=== PATIENT | male | born 1990 | race Caucasian/White ===

== ENCOUNTER 2022-09-02 15:57 | Emergency (ER) | payer OTHER, SELFPAY ==
[2022-09-02 16:06] VITALS: BP 131/91; PULSE 90; RESP 18; TEMP 36.8; O2SAT 97; BMI 30.4
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
[2022-09-02] MEDS: ACETAMINOPHEN 500 MG TABLET 1000 MG PO (16:44)
== END 2022-09-02 18:22 | disposition home or self-care (01) ==
PROVIDERS: Emergency Provider Family Medicine
DX: S09.90XA Unspecified injury of head, initial encounter (principal); M62.830 Muscle spasm of back; V43.52XA Car driver injured in collision with other type car in traffic accident, initial encounter
CPT/HCPCS: 70450; 71046; 99283; 99284; A9270

== ENCOUNTER 2024-06-25 10:55 | Emergency (ER) | payer BC, SELFPAY ==
[2024-06-25 11:00] VITALS: BP 118/80; PULSE 117; RESP 18; TEMP 36.8; O2SAT 96; BMI 28.5
--- NOTE | 2024-06-25 11:16 | CRLHL7_ITS ---
For Patients: As a result of the Century Cures Act, medical imaging exams and procedure reports are released immediately into your electronic medical record. You may view this report before your referring provider. If you have questions, please contact your health care provider. INDICATION: Pain swelling TECHNIQUE: A compression venous ultrasound exam was performed of both upper extremities using pina scale imaging, color Doppler and spectral Doppler analysis. FINDINGS: Sonographic imaging of the upper extremities demonstrates normal compressibility and color Doppler venous blood flow within the internal jugular, brachiocephalic subclavian, axillary brachial basilic veins. Thrombus within both cephalic veins extending from proximal upper arm to wrist. Normal blood flow and compressibility in the radial and ulnar veins. IMPRESSION: 1. No upper extremity DVT seen. Superficial thrombus in both cephalic veins from proximal arm to wrist. Results were relayed to the provider by the missile inspector preflight at the time of the evaluation. Dictated by Cathy Cartagena MD @ 06/25/2024 2:21:38 PM (Electronically Signed)
--- NOTE | 2024-06-25 11:22 | ED.GENADULT ---
HPI - General Adult General Chief complaint: Extremity Pain/Injury, Upper Stated complaint: Told to get US on arms Time Seen by Provider: 06/25/24 11:08 History of Present Illness HPI narrative: This 34-year-old male went to urgent care and was told to come here to get ultrasound of his upper extremities. He had IVs in each upper extremity recently when being evaluated for traumatic brain injury. He has now developed redness in his forearms bilaterally with increased warmth and discomfort where the IVs had been in place. There is no pain or swelling in his upper arms bilaterally. He does not report any chest pain or shortness of breath. He arrives here with normal vital signs except for his heart rate is increased at 117 beats per minute. Related Data Home Medications ?Medication ?Instructions ?Recorded ?Confirmed bupropion HCl 09/02/22 divalproex 500 mg tablet,delayed 500 mg PO BID 06/25/24 06/25/24 release escitalopram oxalate 10 mg tablet 10 mg PO DAILY 06/25/24 06/25/24 gabapentin 300 mg capsule 300 mg PO TID 06/25/24 06/25/24 hydroxyzine HCl 25 mg tablet 25 mg PO TID 06/25/24 06/25/24 olanzapine 10 mg tablet 10 mg PO DAILY 06/25/24 06/25/24 oxycodone 5 mg tablet 5 mg PO Q4-6H PRN 06/25/24 06/25/24 quetiapine 50 mg tablet 50 mg PO DAILY 06/25/24 06/25/24 sodium chloride PO DAILY 06/25/24 Previous Rx's ?Medication ?Instructions ?Recorded cyclobenzaprine 10 mg tablet 10 mg PO HS PRN muscle spasm #10 09/02/22 tabs apixaban 5 mg (74 tabs) tablets in See Rx Instructions PO .COMPLEX 06/25/24 a dose pack (Eliquis DVT-PE Treat #74 ea 30D Start) Allergies Allergy/AdvReac Type Severity Reaction Status Date / Time No Known Drug Allergies Allergy Verified 06/25/24 11:02 Review of Systems Status of ROS: Reports: 10 or more systems reviewed and unremarkable except as noted in History and below Narrative: Constitutional: No fevers, no weight gain or loss. Eyes: No discharge. No vision changes. HENT: No congestion, no sore throat, no ear pain. Cardiovascular: No chest pain, no palpitations. Respiratory: No shortness of breath, no wheezes, no cough. Gastrointestinal: No abdominal pain, no vomiting, no diarrhea. Genitourinary: No dysuria, no hematuria. Musculoskeletal: Normal range of motion. Skin: No rashes, no pruritis. Erythema in the proximal forearms bilaterally were IVs had been placed. Neurological: No dizziness, weakness, sensory change, speech change. Endo/Heme/Allergies: No bruising or bleeding. No polydipsia. Pysch: no suicidality, no anxiety, no insomnia. All other systems reviewed and are negative. [facility] Social History Smoking Status: Current every day smoker What tobacco products do you use: cigarettes Smoking packs per day: 0.5 Smoking cigarettes per day: 10.0 Do you use any of these nicotine containing products: None Second hand tobacco smoke exposure: No How often do you have a drink containing alcohol: monthly or less How many standard drinks containing alcohol do you have on a typical day: 1 or 2 How often do you have six or more drinks on one occasion: Never AUDIT-C Alcohol total score: 1 Non-prescribed substance use: denies use Exam Narrative: Exam Narrative: Constitutional: Well-developed, well-nourished, no acute distress. HEENT: Normocephalic, atraumatic. Neck: Normal range of motion. Nontender. Supple. Heart: Intact distal pulses. Tachycardia. Lungs: No chest discomfort. No wheezes, rhonchi, or rales. Abdomen: Nontender. Back: Normal range of motion. Extremities: Normal range of motion. Erythema with increased warmth on the proximal portion of both forearms where IVs had been placed. Skin: Intact. No rash. Warm. No erythema or pallor. Neurologic: No altered sensation. No weakness. Alert and oriented. Psychiatric: No suicidality. No anxiety or depression. No insomnia. Nursing notes and vitals signs are reviewed. Const: Vital Signs, click to edit/add: Vital Signs - 24 hr 06/25/24 11:00 Temperature 98.2 F Pulse Rate [Pulse Oximeter] 117 H Respiratory Rate 18 Blood Pressure [Ri ght Upper Arm] 118/80 Pulse Oximetry 96 Oxygen Delivery Me thod Room Air Course Vital Signs Vital signs: Initial Vital Signs Temperature 98.2 F 06/25/24 11:00 Temperature Source Temporal Artery Scan 06/25/24 11:00 Pulse Rate 117 H 06/25/24 11:00 Respiratory Rate 18 06/25/24 11:00 Blood Pressure 118/80 06/25/24 11:00 Blood Pressure Mean 92 06/25/24 11:00 Blood Pressure Position Sitting 06/25/24 11:00 Pulse Oximetry 96 06/25/24 11:00 Oxygen Delivery Method Room Air 06/25/24 11:00 Vital Signs Temperature 98.2 F 06/25/24 11:00 Pulse Rate 117 H 06/25/24 11:00 Respiratory Rate 18 06/25/24 11:00 Blood Pressure 118/80 06/25/24 11:00 Pulse Oximetry 96 06/25/24 11:00 Oxygen Delivery Method Room Air 06/25/24 11:00 Temperature 98.2 F 06/25/24 11:00 Pulse Rate 117 H 06/25/24 11:00 Respiratory Rate 18 06/25/24 11:00 Blood Pressure 118/80 06/25/24 11:00 Pulse Oximetry 96 06/25/24 11:00 Oxygen Delivery Method Room Air 06/25/24 11:00 Medical Decision Making MDM Narrative Medical decision making narrative: This 34-year-old male had IVs placed in both arms recently and now comes in with pain and swelling with concern about deep venous thromboses. An ultrasound is obtained of both upper extremities and does show evidence of clot in the vasculature. The patient arrives with increased heart rate but while at rest he is in normal range. He does not have any shortness of breath. He did receive an oral tablet of Eliquis 10 mg and a prescription for the Eliquis starter pack. He is a instructed to follow-up with his primary physician for ongoing management or return if worsening. Discharge Plan Discharge Clinical Impression: Deep venous thrombosis of arm Patient Disposition: Home, Self-Care Condition: Unchanged Instructions: Deep Vein Thrombosis (ED), Blood Thinners (ED) Additional Instructions: Take medication as prescribed. Follow up with primary physician for ongoing management. Return if worsening. Prescriptions: New Eliquis DVT-PE Treat 30D Start 5 mg (74 tabs) tablets,dose pack See Rx Instructions PO .COMPLEX Qty: 74 0RF Rx Instructions: orally per package directions No Action bupropion HCl cyclobenzaprine 10 mg tablet 10 mg PO HS PRN (Reason: muscle spasm) Qty: 10 0RF divalproex 500 mg tablet,delayed release (DR/EC) 500 mg PO BID Patient Comments: [NO ORIGINAL SIG] escitalopram oxalate 10 mg tablet 10 mg PO DAILY Patient Comments: TAKE 1/2 TABLET (5MG) BY MOUTH DAILY FOR 14 DAYS, THEN TAKE 1 TABLET (10MG) DAILY.* olanzapine 10 mg tablet 10 mg PO DAILY Patient Comments: [NO ORIGINAL SIG] oxycodone 5 mg tablet 5 mg PO Q4-6H PRN Patient Comments: [NO ORIGINAL SIG] quetiapine 50 mg tablet 50 mg PO DAILY Patient Comments: [NO ORIGINAL SIG] gabapentin 300 mg capsule 300 mg PO TID hydroxyzine HCl 25 mg tablet 25 mg PO TID sodium chloride PO DAILY Follow Up/Referrals: Provider,Not a Local [Staff Physician] - Stand Alone Forms: [employer] Info Instructions
--- OUTSIDE RECORDS SUMMARY | 2024-06-25 11:32 | XMS_ITS | Encounter Summary ---
Author Organization [place] Address [address] [place] [address]. [place] [address] Care Team Providers Care Passport Support Associate Name Role Phone Allan Baker MD Primary Care Provider [phone] Allan Baker MD Unavailable Encounter Details Date Type Department Care Team (Late st Contact Info) Description 04/07/2024 MyC Medical Advice [facility] [id number] [place] [phone] [place] [address] [place] [address] Social History Tobacco Use Types Packs/Day Years Used Date Smoking Tobacco: Every Day Cigarettes 0.5 14.9 Started: 07/31/2009 Smokeless Tobacco: Current Alcohol Use Standard Drinks/Week Comments Yes 0 (1 standard drink = 0.6 oz pur e alcohol) Social Connection and Isolation Panel [NHANES] A nswer Date Recorded In a typical week, how many times do you talk on the phone with family, friends, or neighbors? Once a week 06/23/20 How often do you get togethe r with friends or relatives? Once a week 06/23/2022 How often do you attend chur ch or jehovah's witness services? Never 06/23/2022 Do you belong to any clubs o r organizations such as yazidi groups, unions, fraternal or athletic groups, or school groups? No 06/23/2022 Attends Club or Organization Meetings Not on susan e 06/23/2022 Are you , , di vorced, , never , or living with a partner? Living with partner 06/23/2022 AUDIT-C Answer Date Recorded Q1: How often do you have a drink containing alc ohol? 2-4 times a month 06/23/2022 Q2: How many drinks containi ng alcohol do you have on a typical day when you are drinking? 1 or 2 06/23/2022 Q3: How often do you have si x or more drinks on one occasion? Less than monthly 06/23/2022 Overall Financial Resource Strain (CARDIA) Answe r Date Recorded How hard is it for you to pa y for the very basics like food, housing, medical care, and heating? Somewhat hard 06/23/2022 PHQ-2 Answer Date Recorded PHQ-2 Score 0 08/25/2023 [facility] - Occupational Stress Questionnaire Answer Date Recorded Do you feel stress - tense, restless, nervous, or anxious, or unable to sleep at night because your mind is troubled all the time - these days? To some extent 06/23/2022 Exercise Vital Sign Answer Date Recorde d On average, how many days pe r week do you engage in moderate to strenuous exercise (like a brisk walk)? 4 days 06/23/2022 On average, how many minutes do you engage in exercise at this level? 10 min 06/23/2022 Hunger Vital Sign Answer Date Recorded Within the past 12 months, y ou worried that your food would run out before you got the money to buy more. Sometimes true Within the past 12 months, t he food you bought just didn't last and you didn't have money to get more. Never true 12/2021 PRAPARE - Transportation Answer Date Re corded In the past 12 months, has l ack of transportation kept you from medical appointments or from getting medications? No 12/2021 In the past 12 months, has l ack of transportation kept you from meetings, work, or from getting things needed for daily living? No 06/23/2022 Housing Stability Vital Sign Answer Ladarius e Recorded In the last 12 months, was t here a time when you were not able to pay the mortgage or rent on time? Yes 06/23/2022 In the last 12 months, how many places have you lived? 1 06/23/2022 In the last 12 months, was t here a time when you did not have a steady place to sleep or slept in a chcf (including now)? No 06/23/2022 Adolescent Education Answer Date Record ed Getting School Help Needed Not on file 08/14 Interpersonal Safety Answer Date Record ed Do you feel physically and e motionally safe where you currently live? Yes 08/11/2023 Within the past 12 months, h ave you been hit, slapped, kicked or otherwise physically hurt by someone? No 08/11/2023 Within the past 12 months, h ave you been humiliated or emotionally abused in other ways by your partner or ex-partner? No 08/11/2023 Sex and Gender Information Value Date Recorded Sex Assigned at Male 06/04/2022 12:49 AM CDT Gender Identity Male 06/04/2022 12:49 AM CDT Sexual Orientation Straight 06/04/2022 12 :49 AM CDT documented as of this encounter Miscellaneous Notes * Telephone Encounter - Allan Baker MD - 04/08/2024 9:06 AM CDT Visit to discuss ZG documented in this encounter Plan of Treatment Not on file documented as of this encounter Visit Diagnoses Not on filedocumented in this encounter Additional Health Concerns Assessment Noted Time PHQ-9 Depression Total Score: 4 08/25/20 9:40 AM CDT documented as of this encounter Care Teams Passport Support Associate Relationship Specialty [place] [address] [facility] [place] [address] PCP - General Family Medicine 06/23/22 [place] [address] [place] [address] Assigned PCP 06/03/22 documented as of this encounter
--- OUTSIDE RECORDS SUMMARY | 2024-06-25 11:32 | XMS_ITS | Referral Summary ---
Author Organization [place] Address [address] [place] [address] Care Team Providers Care Order Takers Supervisor Name Role Phone Allan Baker MD Primary Care Provider [phone] Allan Baker MD Unavailable Encounters Date Type Department Care Team Description 06/05/2024 MyC Medical Advice [address] [phone] Allan Baker MD MyChart Communication 05/29/2024 Travel 05/29/2024 1:00 PM CDT Office Visit [address] [phone] Allan Baker MD Annual physical exam (Primary Dx); Moderate recurrent major depression (H) 04/07/2024 MyC Medical Advice [facility] [id number] [place] [phone] Allan Baker MD from Last 3 Months Allergies No known active allergies Medications Medication Sig Dispensed Refills Start Date End Date Status fluticasone (FLONASE) 50 MCG/ACT nasal sprayIndications :Seasonal allergic rhinitis due to pollen [place] 1-2 sprays into both nostrils daily 16 g 04/03/2021 Active propranolol (INDERAL) 10 MG tablet Take 1 tablet by mouth 3 times daily 02/24/2023 Active BANOPHEN 25 MG capsule Take by mouth nightly as needed 02/24/2023 Active escitalopram (LEXAPRO) 10 MG tabletIndication s:Moderate recurrent major depression (H) Take 1 tablet (10 mg) by mouth daily 90 tablet 3 05/29/2024 Active hydrOXYzine HCl (ATARAX) 25 MG tabletIndication s:Anxiety Take 1 tablet (25 mg) by mouth 3 times daily as needed for anxiety 30 tablet 06/05/2024 Active buPROPion (WELLBUTRIN XL) 300 MG 24 hr tabletIndication s:Depression, unspecified depression type Take 1 tablet (300 mg) by mouth every morning 90 tablet 08/12/2022 4 Discontinued escitalopram (LEXAPRO) 10 MG tabletIndication s:Moderate recurrent major depression (H) Take 0.5 tablets (5 mg) by mouth daily for 14 days, THEN 1 tablet (10 mg) daily for 90 days. 90 tablet 1 08/11/2023 4 Discontinued(Reor raymundo (No AVS)) methocarbamol (ROBAXIN) 500 MG tabletIndication s:Back muscle spasm Take 1 tablet (500 mg) by mouth 4 times daily as needed for muscle spasms 30 tablet 09/09/2023 4 Discontinued Active Problems Problem Noted Date Diagnosed Date Contact dermatitis 01/26/2022 Overview: Created by Conversion Lower back pain 01/26/2022 Overview: Created by Conversion Pain in joint involving ankle and foot 2 Regular astigmatism 01/26/2022 Current moderate episode of major depressive disorder without prior episode 12/26/2020 Overview: Last Assessment & Plan: Improvement in mood, irritability (although this is persistent) with initiation of Wellbutrin. Irritability continues to be primary concern with associated anger. Adherent to Wellbutrin although taking a few evening doses due to forgetting prior to work. Denies associated insomnia Wellbutrin XL 150 mg qAM Encouraged continued engagement with psychotherapy Insomnia due to other mental disorder 09/18/2020 Overview: Last Assessment & Plan: Sleeping well with use of PRN Hydroxyzine FELICIA (generalized anxiety disorder) 09/10/2020 Overview: Last Assessment & Plan: Wellbutrin XL 150 mg daily was started by PCP, quite successful. Will increase next appointment after work schedule normalizes Hydroxyzine PRN for acute anxiety and agitation Continue S1 therapy Regular astigmatism of both eyes 08/27/2017 Sprain of medial collateral ligament of knee Resolved Problems Problem Noted Date Diagnosed Date Resolved Date Mild traumatic brain injury 09/04/2021 05/29/2024 Sprain of acromioclavicular ligament 08/03/2008 04/10/2019 Overview: Problem list name updated by automated process. Provider to review Immunizations Name Administration Dates Next Due Adenovirus, Type 4 and Type 7, Live, Oral 11/30/2013 COVID-19 Monovalent 18+ (Moderna) 08/19/2021, Flu, Unspecified 10/11/2016,08/22/2014 Hepatitis A (ADULT 19+) 11/30/2013 Hepatitis B, Peds 12/11/2002,06/05/2002,03/03/20 02 Influenza (IIV3) PF 08/31/2008 Influenza Vaccine >6 months,quad, PF 11/06/2022 Influenza, seasonal, injectable, PF 11/25/2013 MMR 07/13/2019,07/16/2003 Meningococcal (Menomune??) 06/16/2006 Meningococcal ACWY (Menactra??) 11/30/2013,06/16 Nasal Influenza Vaccine 2-49 (FluMist) 0 Poliovirus, inactivated (IPV) 11/30/2013 TDAP (Adacel,Boostrix) 01/03/2021,2013,11/22/2012,08/31 TDAP Vaccine (Adacel) 07/27/2013 Td (Adult), Adsorbed 11/08/1999 Tdap (Adult) Unspecified Formulation 11/08/1999 Varicella 08/31/2008,06/02/2005 Social History Tobacco Use Types Packs/Day Years Used Date Smoking Tobacco: Every Day Cigarettes 0.5 14.9 Started: 07/31/2009 Passive Smoke Exposure: Current Smokeless Tobacco: Current Tobacco Cessation:Ready to Q uit: Not Asked; Counseling Given: Not Answered Alcohol Use Standard Drinks/Week Comments Yes 0 [...] 06/23/2022 How often do you attend chur or spiritism services? Never 06/23/2022 Do you belong to any clubs o r organizations such as confucianist groups, unions, fraternal or athletic groups, or [...] on one occasion? Less than monthly 06/23/2022 PHQ-2 Answer Date Recorded PHQ-2 Score 2 05/29/2024 [facility] - Occupational Stress [...] exercise at this level? 10 min 06/23/2022 Adolescent Education Answer Date Record ed Getting School Help Needed Not on file 08/14 Food Insecurity Answer Date Recorded Within the past 12 months, d id you worry that your food would run out before you got money to buy more? No 05/29/2024 Within the past 12 months, d id the food you bought just not last and you didn? t have money to get more? No 05/29/2024 Housing Stability Answer Date Recorded Do you have housing? (Rodolfo lopez is defined as stable permanent housing and does not include staying ouside in a car, in a tent, in an abandoned building, in an overnight usp, or couch-surfing.) Yes 05/29/2024 Are you worried about losing your housing? No 05/29/2024 Financial Resource Strain Answer Date R ecorded Within the past 12 months, h ave you or your family members you live with been unable to get utilities (heat, electricity) when it was really needed? No 05/29/2024 Transportation Needs Answer Date Record ed Within the past 12 months, h as lack of transportation kept you from medical appointments, getting your medicines, non-medical meetings or appointments, work, or from getting things that you need? No 05/29/2024 Interpersonal Safety Answer Date Record ed Do [...] Orientation Straight 06/04/2022 12 :49 AM CDT Last Filed Vital Signs Vital Sign Reading Time Taken Comments Blood Pressure 115/77 05/29/2024 12:57 PM CDT Pulse 86 05/29/2024 12:57 PM CDT Temperature 37.1 ??C (98.7 ??F) 05/29/2024 12:57 PM C DT Respiratory Rate 16 05/29/2024 12:57 PM CDT Oxygen Saturation 97% 05/29/2024 12:57 PM CDT Inhaled Oxygen Concentration - - Weight 95.3 kg (210 lb) 05/29/2024 12:57 PM CDT Height 182.9 cm (6') 05/29/2024 12:57 PM CDT Body Mass Index 28.48 05/29/2024 12:57 PM CDT Plan of Treatment Not on file Procedures Procedure Name Priority Date/Time Associated Diagnosis Comments COMPREHENSIVE METABOLIC PANEL Routine 05/29/2024 1:38 PM CDT Annual physical exam LIPID REFLEX TO DIRECT LDL PANEL Routine 05/29/2024 1:38 PM CDT Annual physical exam CBC WITH PLATELETS Routine 05/29/2024 1: 38 PM CDT Annual physical exam HIV ANTIGEN ANTIBODY COMBO Routine 08/11/2023 9:24 AM CDT Screening examination for sexually transmitted disease from Last 3 Months or Most Recently Relevant to Health Maintenance Results * (ABNORMAL) Lipid panel reflex to direct LDL Fasting (05/29/2024 1:38 PM CDT) Cholesterol 95 <200 mg/dL 05/29/2024 6:35 PM CDT [facility] Triglycerides 37 <150 mg/dL 05/29/2024 6:35 PM CDT [facility] Direct Measure HDL 35(L) >=40 mg/dL 05/29/2024 6:35 PM CDT [facility] LDL Cholesterol Calculated 53 <=100 mg/dL 05/29/2024 6:35 PM CDT [facility] Non HDL Cholesterol 60 <130 mg/dL 05/29/2024 6:35 PM CDT [facility] Patient Fasting > 8hrs? Unknown 05/29/2024 6:35 PM CDT [facility] Blood BLOOD SPECIMEN / Unknown Venipuncture / Unknown 05/29/2024 1:38 PM CDT 05/29/2024 1:38 PM CDT Narrative [facility] - 05/29/2024 6:35 PM CDT Cholesterol Desirable: ??<200 mg/dL Triglycerides Normal: ??Less than 150 mg/dL Borderline High: ??150-199 mg/dL High: ??200-499 mg/dL Very High: ??Greater than or equal to 500 mg/dL Direct Measure HDL Female: ??Greater than or equal to 50 mg/dL Male: ??Greater than or equal to 40 mg/dL LDL Cholesterol Desirable: ??<100mg/dL Above Desirable: ??100-129 mg/dL Borderline High: ??130-159 mg/dL High: ??160-189 mg/dL Very High: ??>= 190 mg/dL Non HDL Cholesterol Desirable: ??130 mg/dL Above Desirable: ??130-159 mg/dL Borderline High: ??160-189 mg/dL High: ??190-219 mg/dL Very High: ??Greater than or equal to 220 mg/dL Allan Baker MD LAB - BLOOD ORDERABL ES [facility] Core Lab [address] [facility], [address] [id number] * Comprehensive metabolic panel (BMP + Alb, Alk Phos, ALT, AST, Total. Bili, TP) (05/29/2024 1:38 PM CDT) Sodium 141 135 - 145 mmol/L 05/29/2024 6:35 PM CDT [facility] Potassium 4.4 3.4 - 5.3 mmol/L 05/29/2024 6:35 PM CDT [facility] Carbon Dioxide (CO2) 27 22 - 29 mmol/L 05/29/2024 6:35 PM CDT [facility] Anion Gap 7 7 - 15 mmol/L 05/29/2024 6:35 PM CDT [facility] Urea Nitrogen 10.8 6.0 - 20.0 mg/dL 05/29/2024 6:35 PM CDT [facility] Creatinine 0.88 0.67 - 1.17 mg/dL 05/29/2024 6:35 PM CDT [facility] GFR Estimate >90 >60 mL/min/1. 73m2 05/29/2024 6:35 PM CDT [facility] Comment:eGFR calculated us2020 CKD-EPI equation. Calcium 8.6 8.6 - 10.0 mg/dL 05/29/2024 6:35 PM CDT [facility] Chloride 107 98 - 107 mmol/L 05/29/2024 6:35 PM CDT [facility] Glucose 90 70 - 99 mg/dL 05/29/2024 6:35 PM CDT [facility] Alkaline Phosphatase 50 40 - 150 U/L 05/29/2024 6:35 PM CDT [facility] AST 21 0 - 45 U/L 05/29/2024 6:35 PM CDT [facility] Comment:Reference intervals for this test were updated on 05/03/2023 to more accurately reflect our healthy population. There may be differences in the flagging of prior results with similar values performed with this method. Interpretation of those prior results can be made in the context of the updated reference intervals. ALT 18 0 - 70 U/L 05/29/2024 6:35 PM CDT [facility] Comment:Reference intervals for this test were updated on 05/03/2023 to more accurately reflect our healthy population. There may be differences in the flagging of prior results with similar values performed with this method. Interpretation of those prior results can be made in the context of the updated reference intervals. Protein Total 6.8 6.4 - 8.3 g/dL 05/29/2024 6:35 PM CDT [facility] Albumin 4.1 3.5 - 5.2 g/dL 05/29/2024 6:35 PM CDT [facility] Bilirubin Total 0.4 <=1.2 mg/dL 05/29/2024 6:35 PM CDT [facility] Patient Fasting > 8hrs? Unknown 05/29/2024 6:35 PM CDT [facility] Blood BLOOD SPECIMEN / Unknown Venipuncture / Unknown 05/29/2024 1:38 PM CDT 05/29/2024 1:38 PM CDT Allan Baker MD LAB - BLOOD ORDERABL ES [facility] [place] [facility] [address] [facility] [address] [facility], [address] [place] [address], [facility] * CBC with platelets (05/29/2024 1:38 PM CDT) WBC Count 9.7 4.0 - 11.0 10e3/uL 05/29/2024 1:40 PM CDT [facility] RBC Count 4.48 4.40 - 5.90 10e6/uL 05/29/2024 1:40 PM CDT [facility] Hemoglobin 14.2 13.3 - 17.7 g/dL 05/29/2024 1:40 PM CDT [facility] Hematocrit 43.2 40.0 - 53.0 % 05/29/2024 1:40 PM CDT [facility] MCV 96 78 - 100 fL 05/29/2024 1:40 PM CDT [facility] MCH 31.7 26.5 - 33.0 pg 05/29/2024 1:40 PM CDT [facility] MCHC 32.9 31.5 - 36.5 g/dL 05/29/2024 1:40 PM CDT [facility] RDW 11.7 10.0 - 15.0 % 05/29/2024 1:40 PM CDT [facility] Platelet Count 204 150 - 450 10e3/uL 05/29/2024 1:40 PM CDT [facility] Blood BLOOD SPECIMEN / Unknown Venipuncture / Unknown 05/29/2024 1:38 PM CDT 05/29/2024 1:38 PM CDT Allan Baker MD LAB - BLOOD ORDERABL ES [facility] [address] [facility] (no room number, 1st floor of [facility]) [place] [address] [phone] * HIV Antigen Antibody Combo (08/11/2023 9:24 AM CDT) [facility] HIV Antigen Antibody Combo Nonreactive Nonreactive 08/12/2023 3:43 PM CDT SPECIALTY CORE/PROT/EN DO Comment:HIV-1 p24 Ag & HIV-1 /HIV-2 Ab Not Detected Blood BLOOD SPECIMEN / Unknown Venipuncture / Unknown 08/11/2023 9:24 AM CDT 08/11/2023 9:27 AM CDT Allan Baker MD LAB - BLOOD ORDERABL ES [facility]/PROT/ENDO [facility] Core/Prot/Endo [address] [facility] [address], [address] [place] [address], [facility] [phone] from Last 3 Months or Most Recently Relevant to Health Maintenance Care Teams Order Takers Supervisor Relationship Specialty [place] [address] [place] [address] PCP - General Family Medicine 06/23/22 [place] [address] [place] [address] Assigned PCP 06/03/22
--- OUTSIDE RECORDS SUMMARY | 2024-06-25 11:32 | XMS_ITS | Clinical Summary ---
Author Organization [employer] [facility] Address [place], [place] [address] Care Team Providers Care Passenger Vessel Chef Name Role Phone [facility] Primary Care Provider Unavailabl e Allergies No known active allergies Medications Medication Sig Dispensed Refills Start Date End Date Status cyclobenzaprine (FLEXERIL) 10 mg tabletIndications :Acute bilateral low back pain without sciatica Take 0.5-1 tablets by mouth 3 times daily. 30 tablet 03/14/2019 Active naproxen (NAPROSYN) 500 mg tabletIndications :Acute bilateral low back pain without sciatica Take 1 tablet by mouth 2 times daily with meals. 14 tablet 03/14/2019 Active Additional Information Patient not taking.Reported on 06/25/2024 HYDROcodone-aceta minophen, 5-325 mg, (NORCO) per tabletIndications :Acute bilateral low back pain without sciatica Take 1 tablets up to twice daily as needed for pain. Max acetaminophen dose: 4000 mg in 24 hrs. 10 tablet 03/14/2019 Active QUEtiapine (SEROQUEL) 50 mg tablet Take by mouth. 06/23/2024 Active oxyCODONE (ROXICODONE) 5 mg immediate release tablet Take 5-10 mg by mouth. 06/23/2024 06/28/2024 Active OLANzapine (ZYPREXA, FILM COATED TABLET,) 10 mg tablet Take 10 mg by mouth. 06/23/2024 Ac tive nicotine (NICORETTE) 2 mg gum 2 mg by Intra-Detrusor route. 06/23/2024 Active hydrOXYzine HCL (ATARAX) 25 mg tablet Take 25 mg by mouth. 06/05/2024 Acti ve gabapentin (NEURONTIN) 300 mg capsule Take 300 mg by mouth. 06/23/2024 Active escitalopram oxalate (LEXAPRO) 10 mg tablet Take 10 mg by mouth. 05/29/2024 Ac tive divalproex (DEPAKOTE) 500 mg Delayed-Release tablet Take 500 mg by mouth. 06/23/2024 Active Active Problems Problem Noted Date Diagnosed Date Regular astigmatism of both eyes 08/27/2017 Encounters Date Type Department Care Team Description 06/25/2024 9:30 AM CDT Office Visit [facility] [place] [address] [place] [address] Leslye Tripathi, FAN Dizzy; Arm Pain/problem 06/25/2024 Travel from Last 3 Months Immunizations Name Administration Dates Next Due Hepatitis B (Peds) 12/11/2002,06/05/2002, 002 Influenza Virus, Unspecified 10/11/2016,08/22/20 14 Influenza, IIV3 (Age >=3 years) 08/31/2008 MMR 07/16/2003 Meningococcal Vaccine (Menactra) 06/16/2006 Td (Age >=7 Years) 11/08/1999 Tdap 07/27/2013,11/22/2012,08/31/2008 Varicella Vaccine 08/31/2008,06/02/2005 Family History Medical History Relation Name Comments Congenital heart disease Brother 1 Congenital heart disease Brother 2 No Known Problems Father Diabetes Maternal Grandfather Diabetes Maternal Grandmother Congenital heart disease Mother Thyroid Disease Mother Diabetes Paternal Grandmother Relation Name Status Comments Brother 1 Brother 2 Father Maternal Grandfather Maternal Grandmother Mother Paternal Grandmother Social History Tobacco Use Types Packs/Day Years Used Date Smoking Tobacco: Every Day Cigarettes 0.3 5 Started: 11/22/2008; Last attempted to quit: 11/22/2013 Smokeless Tobacco: Never Tobacco Cessation:Ready to Q uit: Not Asked; Counseling Given: Not Answered Comments:03/14/19 - started back up again Alcohol Use Standard Drinks/Week Comments Yes 0 (1 standard drink = 0.6 oz pur e alcohol) PHQ-2 Answer Date Recorded PHQ-2 Score 6 01/24/2019 Sex and Gender Information Value Date Recorded Sex Assigned at Not on file Gender Identity Not on file Sexual Orientation Not on file Obstetrics History Last Filed Vital Signs Vital Sign Reading Time Taken Comments Blood Pressure 112/65 06/25/2024 9:32 AM CDT Pulse 85 06/25/2024 9:32 AM CDT Temperature 37 ??C (98.6 ??F) 06/25/2024 9:32 AM CDT Respiratory Rate 16 06/25/2024 9:32 AM CDT Oxygen Saturation 94% 06/25/2024 9:32 AM CDT Inhaled Oxygen Concentration - - Weight 95.3 kg (210 lb) 06/25/2024 9:32 AM CDT Height 182.9 cm (6') 06/25/2024 9:32 AM CDT Body Mass Index 28.48 06/25/2024 9:32 AM CDT Plan of Treatment Health Maintenance Due Date Last Done Comments Depression screening for age 12+ 07/27/2019 07/27/2018, 07/18/2018, 06/14/2018 COVID-19 vaccine series (2022- season) 2023 Tetanus booster 07/27/2023 07/27/2013, 11/2012, 08/31/2008, Additional history exists Influenza for age 9-49 07/23/2024 6, 08/22/2014, 08/31/2008 BMI (ht and wt on same day) for age 18+ 06/25/2025 06/25/2024, 03/14/2019, 07/27/2018, Additional history exists Tdap Completed 07/27/2013, 11/2012, 08/31/2008 HIV for age 15-65 Completed 06/14/2018 Hepatitis C screening for age 18-79 Completed 06/14/2018 Pneumococcal series for age 6-64 Aged Out No longer eligible based on patient's age to complete this topic Procedures Procedure Name Priority Date/Time Associated Diagnosis Comments ANTI HIV 1/2 Routine 06/14/2018 4:49 PM CDT Screen for STD (sexually transmitted disease) ANTI HCV Routine 06/14/2018 4:49 PM CDT Screen for STD (sexually transmitted disease) from Last 3 Months or Most Recently Relevant to Health Maintenance Results * ANTI HCV (06/14/2018 4:49 PM CDT) HEPATITIS C ANTIBODY Non-React derian Non-React derian 06/15/2018 4:29 PM CDT [facility] [employer] Comment:Antibodies to HCV no t detected; does not exclude the possibility of exposure to HCV. Blood BLOOD SPECIMEN / Unknown Butterfly / Unknown 06/14/2018 4:49 PM CDT 06/14/2018 4:49 PM CDT Mireya Odom MD SEND OUTS [facility] [employer] [address] [place] [address], [place] * ANTI HIV 1/2 (06/14/2018 4:49 PM CDT) HIV-1/HIV-2 ANTIBODY Non-Reacti ve Non-Reacti ve 06/15/2018 4:27 PM CDT [facility] Comment:HIV-1 p24 and HIV-1/ HIV-2 Ab not detected. Blood BLOOD SPECIMEN / Unknown Butterfly / Unknown 06/14/2018 4:49 PM CDT 06/14/2018 4:50 PM CDT Mireya Odom MD SEND OUTS [facility] [address] [place] [address], from Last 3 Months or Most Recently Relevant to Health Maintenance Care Teams Passenger Vessel Chef Relationship Specialty Start Date End Date [facility] [place] - General 06/09/18
--- OUTSIDE RECORDS SUMMARY | 2024-06-25 11:32 | XMS_ITS | Encounter Summary ---
Author Organization [place] Address [address] [place] [address]. [place] [address] Care Team Providers Care Machine Lacer Name Role Phone Allan Baker MD Primary Care Provider [phone] Allan Baker MD Unavailable Encounter Details Date Type Department Care Team (Latest Contact Info) Description 05/29/2024 Travel Social History Tobacco Use Types Packs/Day Years Used Date Smoking Tobacco: Every Day Cigarettes 0.5 14.9 Started: 07/31/2009 Passive Smoke Exposure: Current Smokeless Tobacco: Current Alcohol Use Standard Drinks/Week [...] How often do you attend chur or bahai services? Never 06/23/2022 Do you belong to any clubs o r organizations such as jewish groups, unions, fraternal or athletic groups, or [...] Answer Date Recorded PHQ-2 Score 2 05/29/2024 [facility] - Occupational Stress Questionnaire Answer Date Recorded [...] in an abandoned building, in an overnight jail, or couch-surfing.) Yes 05/29/2024 Are you worried [...] AM CDT documented as of this encounter Plan of Treatment Not on file documented as of this encounter Visit Diagnoses Not on filedocumented in this encounter Additional Health Concerns Assessment Noted Time PHQ-9 Depression Total Score: 11 024 12:50 PM CDT documented as of this encounter Care Teams Machine Lacer Relationship Specialty [place] [address] [place] [address] PCP - General Family Medicine 06/23/22 [place] [address] [place] [address] Assigned PCP 06/03/22 documented as of this encounter
--- OUTSIDE RECORDS SUMMARY | 2024-06-25 11:32 | XMS_ITS | Encounter Summary ---
Author Organization [place] Address [address] [place] [address]. [place] [address] Care Team Providers Care Concrete Finishing Machine Operator Name Role Phone Allan Baker MD Primary Care Provider [phone] Allan Baker MD Unavailable Kasandra Resendez PA-C Unavailable Reason for Visit * Reason Onset Date Comments Referral 06/23/2022 Encounter Details Date Type Department Care Team (Late st Contact Info) Description 06/23/2022 MyC Medical Advice [facility] [id number] [place] [phone] [place] [id number] [place] [address] Referral Social History Tobacco Use Types Packs/Day Years [...] week 06/23/2022 How often do you attend [facility] or anglican services? Never 06/23/2022 Do you belong to any clubs o r organizations such as gnosticist groups, unions, fraternal or athletic groups, or [...] PHQ-2 Answer Date Recorded PHQ-2 Score 2 06/23/2022 [facility] - Occupational [...] place to sleep or slept in a prison (including now)? No 06/23/2022 Sex and Gender Information Value Date Recorded Sex Assigned at Male 06/04/2022 12:49 AM CDT Gender Identity Male 06/04/2022 12:49 AM CDT Sexual Orientation Straight 06/04/2022 12 :49 AM CDT COVID-19 Exposure Response Date Recorded In the last 10 days, have yo u been in contact with someone who was confirmed or suspected to have Coronavirus/COVID-19? No / Unsure 06/23/2022 9:44 AM CDT documented as of this encounter Miscellaneous Notes * Telephone Encounter - David Horn RN - 06/23/2022 12:54 PM CDT Huddled with provider in clinic, provider oklized sleep study, RN attempted to order with VO but order already pended by provider. David Corley RN documented in this encounter Plan of Treatment Not on file documented as of this encounter Visit Diagnoses Diagnosis Loud snoring- Primary documented in this encounter Additional Health Concerns Infection Onset Date Last Indicated Resolved Time Influenza 02/27/2023 02/27/2023 03/06/2023 11:3 9 PM CDT Rule Out COVID-19 02/27/2023 02/27/2023 03/02/2023 11:21 AM CDT Assessment Noted Time PHQ-9 Depression Total Score: 12 022 10:01 AM CDT documented as of this encounter Care Teams Concrete Finishing Machine Operator Relationship Specialty [place] [address] [place] [address] PCP - General Family Medicine 06/23/22 [place] [address] [place] [address] Assigned PCP 06/03/22 Kasandra Resendez PA-C [address] [place] [address] Assigned Neuroscience Provider 03/06/23 12/15/23 documented as of this encounter
--- OUTSIDE RECORDS SUMMARY | 2024-06-25 11:32 | XMS_ITS | Encounter Summary ---
Author Organization [place] Address [address] [place] [address]. [place] [address] Care Team Providers Care Growth Hacker Name Role Phone Allan Baker MD Primary Care Provider [phone] Allan Baker MD Unavailable Kasandra Resendez PA-C Unavailable [phone] Encounter Details Date Type Department Care Team (Late st Contact Info) Description 06/24/2022 MyC Medical Advice [place] Centralized Scheduling [facility] [place] [address] Nya Willis Social History Tobacco Use Types Packs/Day Years [...] often do you attend chur ch or orthodox services? Never 06/23/2022 Do you belong to any clubs o r organizations such as latter day groups, unions, fraternal or athletic groups, or [...] Answer Date Recorded PHQ-2 Score 2 06/23/2022 [facility] - Occupational [...] place to sleep or slept in a long term (including now)? No 06/23/2022 Sex and Gender [...] filedocumented in this encounter Additional Health Concerns Infection Onset Date Last Indicated Resolved Time Influenza 02/27/2023 02/27/2023 03/06/2023 11:3 9 PM CDT Rule Out COVID-19 02/27/2023 02/27/2023 03/02/2023 11:21 AM CDT Assessment Noted Time PHQ-9 Depression Total Score: 12 022 10:01 AM CDT documented as of this encounter Care Teams Growth Hacker Relationship Specialty [place] [address] [place] [address] PCP - General Family Medicine 06/23/22 [place] [address] [place] [address] Assigned PCP 06/03/22 Kasandra Resendez PA-C [address] [place] [address] Assigned Neuroscience Provider 03/06/23 12/15/23 documented as of this encounter
--- OUTSIDE RECORDS SUMMARY | 2024-06-25 11:32 | XMS_ITS | Encounter Summary ---
Author Organization [place] Address [address] [place] [address] Care Team Providers Care Life Science Taxonomist Name Role Phone Allan Baker MD Primary Care Provider [phone] Allan Baker MD Unavailable Kasandra Resendez PA-C Unavailable [phone] Encounter Details Date Type Department Care Team (Late st Contact Info) Description 08/31/2022 MyC Medical Advice [address] [phone] Vane Montejo CMA Social History Tobacco Use Types Packs/Day Years [...] often do you attend chur ch or congregational services? Never 06/23/2022 Do you belong to [...] Answer Date Recorded PHQ-2 Score 2 06/23/2022 [facility] - Occupational [...] place to sleep or slept in a halfway (including now)? No 06/23/2022 Sex and Gender [...] documented as of this encounter Care Teams Life Science Taxonomist Relationship Specialty [place] [address] [place] [address] PCP - General Family Medicine 06/23/22 [place] [address] [place] [address] Assigned PCP 06/03/22 Kasandra Resendez PA-C [address] [place] [address] Assigned Neuroscience Provider 03/06/23 12/15/23 documented as of this encounter
--- OUTSIDE RECORDS SUMMARY | 2024-06-25 11:32 | XMS_ITS | Encounter Summary ---
Author Organization [place] Address [address] [place] [address] Care Team Providers Care Cash Posting Representative Name Role Phone Allan Baker MD Primary Care Provider [phone] Allan Baker MD Unavailable Kasandra Resendez PA-C Unavailable [phone] Encounter Details Date Type Department Care Team (Late st Contact Info) Description 08/12/2022 MyC Medical Advice [address] [phone] Vanessa Mehta RN Social History Tobacco Use Types Packs/Day Years [...] often do you attend chur ch or catholic services? Never 06/23/2022 Do you belong to any clubs o r organizations such as anglican groups, unions, fraternal or athletic groups, or [...] Answer Date Recorded PHQ-2 Score 2 06/23/2022 [facility] - Occupational [...] place to sleep or slept in a assisted (including now)? No 06/23/2022 Sex and Gender [...] documented as of this encounter Care Teams Cash Posting Representative Relationship Specialty [place] [address] [place] [address] PCP - General Family Medicine 06/23/22 [place] [address] [place] [address] Assigned PCP 06/03/22 Kasandra Resendez PA-C [address] [place] [address] Assigned Neuroscience Provider 03/06/23 12/15/23 documented as of this encounter
--- OUTSIDE RECORDS SUMMARY | 2024-06-25 11:32 | XMS_ITS | Encounter Summary ---
Author Organization [place] Address [address] [place] [address]. [place] [address] Care Team Providers Care It Application Support Analyst Name Role Phone Allan Baker MD Primary Care Provider [phone] Allan Baker MD Unavailable Reason for Referral * Mental Health Outpatient (Priority: 1-2 Weeks) - Pending Review Specialty Diagnoses / Procedures Referred By Radha mancuso Referred To Contact Behavioral Health Diagnoses Moderate recurrent major depression (H) [place] [address] [place] [address] Referral ID Status Reason Start Date Expiration Date V isits Requested Visits Authorized [id number] Pending Review 05/29/2024 05/29/2025 1 1 Question Answer Services: Psychological Testing Reason for Referral - REVIEW REFERENCE LINK BELOW: Psychological Testing My clinical question is: trauma/stress disorder, irritability/anger, history of alcohol dependence, was previously seen at [facility] Scheduling Instructions: [employer] will call you to coordinate your care as prescribed by your provider. If you don't hear from a payroll representative within 2 business days, please call . Only select yes if the patient has already been scheduled and requires a referral for insurance. If yes is selected, the referral will NOT route to scheduling for outreach. No Comments Please be aware that coverage of these services is subject to the terms and limitations of your health insurance plan. Call member services at your health plan with any benefit or coverage questions. [employer] will call you to coordinate your care as prescribed by your provider. If you don't hear from a payroll representative within 2 business days, please call . Reason for Visit * Reason Comments Physical PE Mental Health Problem Follow-up mental h ealth Encounter Details Date Type Department Care Team (Late st Contact Info) Description 05/29/2024 1:00 PM CDT Office Visit [facility] [id number] [place] [phone] [place] [address] [place] [address] Annual physical exam (Primary Dx); Moderate recurrent major depression (H) Social History Tobacco Use Types Packs/Day Years [...] How often do you attend chur or alevism services? Never 06/23/2022 Do you belong to any clubs o r organizations such as evangelical groups, unions, fraternal or athletic groups, or [...] Answer Date Recorded PHQ-2 Score 2 05/29/2024 [facility] Occupat ional Health - Occupational Stress [...] Answer Date Recorded Do you have housing? (Housin g is defined as stable permanent housing and does not include staying ouside in a car, in a tent, in an abandoned building, in an overnight half-way, or couch-surfing.) Yes 05/29/2024 Are you worried [...] AM CDT documented as of this encounter Last Filed Vital Signs Vital Sign Reading [...] Mass Index 28.48 05/29/2024 12:57 PM CDT documented in this encounter Progress Notes * Allan Baker MD - 05/29/2024 1:00 PM CDT Images from the original note were not included. Preventive Care Visit [facility] Allan Baker MD, Family Medicine May 29, 2024 Assessment & Plan Annual physical exam - CBC with platelets - Lipid panel reflex to direct LDL Fasting - Comprehensive metabolic panel (BMP + Alb, Alk Phos, ALT, AST, Total. Bili, TP) - CBC with platelets - Lipid panel reflex to direct LDL Fasting - Comprehensive metabolic panel (BMP + Alb, Alk Phos, ALT, AST, Total. Bili, TP) Moderate recurrent major depression (H) Symptoms following recent DUI, history of alcohol use disorder. Patient reportedly was sober for many months prior to this. Undergoing several life stressors previously was getting evaluation throughsee psychology, lost insurance and was lost to follow-up. Referral has been placed, continue Lexapro, safety plan reviewed if actively suicidal needs to go to the ER. - escitalopram (LEXAPRO) 10 MG tablet Dispense: 90 tablet; Refill: 3 - Adult Mental Health Stiff Leg Derrick Operator Referral BMI Estimated body mass index is 28.48 kg/m?? as calculated from the following: Height as of this encounter: 1.829 m (6'). Weight as of this encounter: 95.3 kg (210 lb). Weight management plan: Discussed healthy diet and exercise guidelines Depression Screening Follow Up No data to display Follow Up Actions Taken Crisis resource information provided in the After Visit Summary Mental Health Referral placed Discussed the following ways the patient can remain in a safe environment: remove alcohol and be around others Counseling Appropriate preventive services were discussed with this patient, including applicable screening asappropriate for fall prevention, nutrition, physical activity, Tobacco-use cessation, weight loss and cognition. Checklist reviewing preventive services available has been given to the patient. Reviewed patient's diet, addressing concerns and/or questions. The patient reports drinking more than 3 alcoholic drinks per day and/or more than 7 drhnks per week. The patient was counseled and given information about possible harmful effects of excessive alcohol intake.The patient's PHQ-9 score is consistent with moderate depression. He was provided with information regarding depression. Selwyn Moran is a 34 year old, presenting for the following: Physical (PE) and Mental Health Problem (Follow-up mental health) 05/29/2024 12:55 PM Additional Questions Roomed by Anabell Maurice Health Care Directive Patient does not have a Health Care Directive or Living Will: Discussed advance care planning with patient; however, patient declined at this time. HPI Interval mental health follow-up, recent worsening following driving under intoxication, has been undergoing more life stressors. Adherent to Lexapro. Suicidal ideations without active plan. Requesting psychology referral. 05/29/2024 General Health How would you rate your overall physical health? Good 05/29/2024 Nutrition Three or more servings of calcium each day? (!) NO Diet: Other If other, please elaborate: None How many servings of fruit and vegetables per day? (!) 2-3 How many sweetened beverages each day? (!) 2 06/23/2022 Exercise Days per week of moderate/strenous exercise 4 days Average minutes spent exercising at this level 10 min 05/29/2024 Social Factors Worry food won't last until get money to buy more No Food not last or not have enough money for food? No Do you have housing? (Housing is defined as stable permanent housing and does not include staying ouside in a car, in a tent, in an abandoned building, in an overnight half-way, or couch-surfing.) Yes Are you worried about losing your housing? No Lack of transportation? No Unable to get utilities (heat,electricity)? No 05/29/2024 Dental Dentist two times every year? (!) DECLINE Today's PHQ-9 Score: 05/29/2024 12:50 PM PHQ-9 SCORE PHQ-9 Total Score MyChart 11 (Moderate depression) PHQ-9 Total Score 11 05/29/2024 Substance Use Alcohol more than 3/day or more than 7/wk Yes How often do you have a drink containing alcohol Never Audit 2/3 Score Incomplete Have you or someone else been injured because of your drinking No Has anyone been concerned or suggested you cut down on drinking Yes, during the last year TOTAL SCORE - AUDIT Incomplete Do you use any other substances recreationally? (!) ALCOHOL Social History Tobacco Use Smoking status: Every Day Current packs/day: 0.50 Average packs/day: 0.5 packs/day for 14.8 years (7.4 ttl pk-yrs) Types: Cigarettes Start date: 07/31/2009 Passive exposure: Current Smokeless tobacco: Current Vaping Use Vaping status: Never Used Substance Use Topics Alcohol use: Yes Drug use: Not Currently Types: Marijuana 05/29/2024 Contraception/Family Planning Questions about contraception or family planning No Reviewed and updated as needed this visit by Provider Objective Exam BP 115/77 (BP Location: Right arm, Patient Position: Chair, Cuff Size: Adult Large) Pulse 86 Temp 98.7 ??F (37.1 ??C) (Oral) Resp 16 Ht 1.829 m (6') Wt 95.3 kg (210 lb) SpO2 97% BMI 28.48 kg/m?? Estimated body mass index is 28.48 kg/m?? as calculated from the following: Height as of this encounter: 1.829 m (6'). Weight as of this encounter: 95.3 kg (210 lb). Physical Exam Vitals reviewed. Constitutional: General: He is not in acute distress. Appearance: Normal appearance. He is not ill-appearing. HENT: Head: Normocephalic and atraumatic. Right Ear: External ear normal. Left Ear: External ear normal. Nose: Nose normal. Mouth/Throat: Mouth: Mucous membranes are moist. Pharynx: Oropharynx is clear. Eyes: General: No scleral icterus. Right eye: No discharge. Left eye: No discharge. Extraocular Movements: Extraocular movements intact. Pupils: Pupils are equal, round, and reactive to light. Neck: Vascular: No JVD. Cardiovascular: Rate and Rhythm: Normal rate and regular rhythm. Pulmonary: Effort: Pulmonary effort is normal. No respiratory distress. Breath sounds: Normal breath sounds. Abdominal: General: Abdomen is flat. Bowel sounds are normal. Palpations: Abdomen is soft. Musculoskeletal: General: No swelling. Cervical back: Normal range of motion. Lymphadenopathy: Cervical: No cervical adenopathy. Skin: General: Skin is warm. Capillary Refill: Capillary refill takes less than 2 seconds. Neurological: Mental Status: He is alert. Psychiatric: Comments: Well groomed, depressed mood, linear nonpressured speech. Signed Electronically by: Allan Baker MD Answers submitted by the patient for this visit: Patient Health Questionnaire (Submitted on 05/29/2024) If you checked off any problems, how difficult have these problems made it for you to do your work,take care of things at home, or get along with other people?: Somewhat difficult PHQ9 TOTAL SCORE: 11 FELICIA-7 (Submitted on 05/29/2024) FELICIA 7 TOTAL SCORE: 8 documented in this encounter Plan of Treatment Scheduled Referrals Name Type Priority Associated Diagnoses Orde r Schedule Adult Mental Health Stiff Leg Derrick Operator Referral Referral Priority: 1-2 Weeks Moderate recurrent major depression (H) Expected: 05/29/2024 (Approximate), Expires: 05/29/2025 documented as of this encounter Procedures Procedure Name Priority Date/Time Associated Diagnosis Comments LIPID REFLEX TO DIRECT LDL PANEL Routine 05/29/2024 1:38 PM CDT Annual physical exam COMPREHENSIVE METABOLIC PANEL Routine 05/29/2024 1:38 PM CDT Annual physical exam CBC WITH PLATELETS Routine 05/29/2024 1: 38 PM CDT Annual physical exam documented in this encounter Results * Comprehensive metabolic panel (BMP + Alb, [...] 6:35 PM CDT [facility] Comment:eGFR calculated usin 2020 CKD-EPI equation. Calcium 8.6 8.6 - 10.0 [...] LAB - BLOOD ORDERABL ES [facility] Lab [address] [facility], [address] [place] [id number] * (ABNORMAL) Lipid panel reflex to direct [...] Baker MD LAB - BLOOD ORDERABL ES LABORATORY [facility] [address] [facility], [address] [place] [phone] * CBC with platelets (05/29/2024 1:38 PM [...] LAB - BLOOD ORDERABL ES [facility] [address] [facility] Lab (no room number, 1st floor of clinic) [place] [address], [facility] [phone] documented in this encounter Visit Diagnoses Diagnosis Annual physical exam- Primary Routine general medical examination at a health care facility Moderate recurrent major depression (H) Major depressive disorder, recurrent episode, moderate documented in this encounter Additional Health Concerns Assessment Noted Time PHQ-9 Depression Total Score: 11 024 12:50 PM CDT documented as of this encounter Care Teams It Application Support Analyst Relationship Specialty [place] [address] [place] [address] PCP - General Family Medicine 06/23/22 [place] [address] [place] [address] Assigned PCP 06/03/22 documented as of this encounter
--- OUTSIDE RECORDS SUMMARY | 2024-06-25 11:32 | XMS_ITS | Clinical Summary ---
Author Organization [facility] Address [address] [place] [address] Care Team Providers Care Cotton Classer Name Role Phone Allan Baker MD Primary Care Provider [phone] Allan Baker MD Unavailable Allergies No known active allergies Medications Medication Sig Dispensed Refills Start Date End Date Status fluticasone (FLONASE) 50 MCG/ACT nasal sprayIndications :Seasonal allergic rhinitis due to pollen [place] 1-2 sprays into both nostrils daily 16 [...] by mouth every morning 90 tablet 08/12/2022 Discontinued escitalopram (LEXAPRO) 10 MG tabletIndication s:Moderate [...] updated by automated process. Provider to review Encounters Date Type Department Care Team Description 06/05/2024 MyC Medical Advice [facility] [id number] [place] [phone] Allan Baker MD MyChart Communication 05/29/2024 1:00 PM CDT Office Visit [address] [phone] Allan Baker MD Annual physical exam (Primary Dx); Moderate recurrent major depression (H) 05/29/2024 Travel 04/07/2024 MyC Medical Advice [address] [phone] Allan Baker MD from Last 3 Months Immunizations Name Administration Dates Next Due Adenovirus, [...] Tdap (Adult) Unspecified Formulation 11/08/1999 Varicella 08/31/2008,06/02/2005 Family History Medical History Relation Comments Heart Surgery Brother 1 < 1 year old Heart block Brother 1 Heart Surgery Brother 2 < 1 year old Varicose Veins Father Diabetes Maternal Grandfather Breast Cancer Maternal Grandmother Diabetes Paternal Grandmother Asthma No family hx of Relation Status Comments Brother 1 Brother 2 Father Maternal Grandfather Maternal Grandmother Paternal Grandmother Social History Tobacco Use Types [...] week 06/23/2022 How often do you attend [facility] or sikhism services? Never 06/23/2022 Do you belong to [...] Answer Date Recorded PHQ-2 Score 2 05/29/2024 [facility] [place] of Occupat ional Health - Occupational Stress [...] Date Recorded Do you have housing? (Rodolfo g is defined as stable permanent housing and does not include staying ouside in a car, in a tent, in an abandoned building, in an overnight fpc, or couch-surfing.) Yes 05/29/2024 Are you worried [...] 05/29/2024 12:57 PM CDT Plan of Treatment Health Maintenance Due Date Last Done Comments Pneumococcal Vaccine: Pediatrics (0 to 5 Years) and At-Risk Patients (6 to 64 Years) (1 of 2 - PCV) 1996 IPV IMMUNIZATION (2 of 3 - Adult catch-up series) 12/28/2013 11/30/2013 COVID-19 Vaccine (3 - season) 2023 08/19/2021, 07/04/2021 DEPRESSION 12 MO INDEX REPEAT PHQ-9 06/12/2024 05/29/2024, 08/25/2023, 08/11/2023, Additional history exists INFLUENZA VACCINE (#1) 2024 , 10/21/2020, 10/11/2016, Additional history exists ANNUAL REVIEW OF HM ORDERS 08/11/2024 08/11/2023, NICOTINE/TOBACCO CESSATION COUNSELING Q 1 YR 08/11/2024 08/11/2023, 06/23/2022 PHQ-9 11/29/2024 05/29/2024, 10/0 02/2023, 08/11/2023, Additional history exists YEARLY PREVENTIVE VISIT 05/29/2025 05/29/2024, 06/23 ADVANCE CARE PLANNING 05/29/2029 05/29/2024, 022 DTAP/TDAP/TD IMMUNIZATION (7 - Td or Tdap) 01/03/2031 01/03/2021, 11/25/2013, 07/27/2013, Additional history exists HEPATITIS B IMMUNIZATION Completed 003, 06/05/2002, 03/03/2002 MENINGITIS IMMUNIZATION Completed 11/30/19 14, 06/16/2006, 06/16/2006 DEPRESSION ACTION PLAN Completed 08/11/2023 HIV SCREENING Discontinued 08/11/2023 HEPATITIS C SCREENING Discontinued HPV IMMUNIZATION Aged Out No longer e ligible based on patient's age to complete this topic RSV MONOCLONAL ANTIBODY Aged Out No l onger eligible based on patient's age to complete [...] LAB - BLOOD ORDERABL ES [facility] Core Lab [address] [facility], Room [address] [place], [place] [phone] * Comprehensive metabolic panel (BMP + Alb, [...] LAB - BLOOD ORDERABL ES [facility] [place] Core Lab [address] [facility], [address] [phone] * CBC with platelets (05/29/2024 1:38 PM [...] MD LAB - BLOOD ORDERABL ES LABORATORY [facility] Lab [address] [facility] Lab (no room number, 1st floor of clinic) [place] [address] [phone] * HIV Antigen Antibody Combo (08/11/2023 9:24 AM CDT) Pathologist [facility] HIV Antigen Antibody Combo Nonreactive Nonreactive 08/12/2023 3:43 PM CDT SPECIALTY CORE/PROT/EN DO Comment:HIV-1 p24 Ag & HIV-1 /HIV-2 Ab Not Detected Blood BLOOD SPECIMEN / Unknown Venipuncture / Unknown 08/11/2023 9:24 AM CDT 08/11/2023 9:27 AM CDT Allan Baker MD LAB - BLOOD ORDERABL ES [facility] SPECIALTY CORE/PROT/ENDO [facility] Specialty Core/Prot/Endo [address] [facility] [address], [address] [place] [id number], [facility] [phone] from Last 3 Months or Most Recently Relevant to Health Maintenance Care Teams Cotton Classer Relationship Specialty [place] [address] [place] [address] PCP - General Family Medicine 06/23/22 [place] [address] [place] [address] Assigned PCP 06/03/22
--- OUTSIDE RECORDS SUMMARY | 2024-06-25 11:32 | XMS_ITS | Encounter Summary ---
Author Organization [facility] Address [address] [place] [address]. [place] [address] Care Team Providers Care Technical Advisor Name Role Phone Allan Baker MD Primary Care Provider [phone] Allan Baker MD Unavailable Reason for Visit * Reason Onset Date Comments MyChart Communication 06/05/2024 Encounter Details Date Type Department Care Team (Latest Contact Info) Description 06/05/2024 MyC Medical Advice [facility] [id number] [place] [phone] Allan Baker MD [address] [place] [address] MyChart Communication Social History Tobacco Use Types Packs/Day Years [...] often do you attend chur ch or gnosticism services? Never 06/23/2022 Do you belong to any clubs o r organizations such as synagogue groups, unions, fraternal or athletic groups, or [...] Answer Date Recorded PHQ-2 Score 2 05/29/2024 [facility] [place] of Occupat ional Health - Occupational Stress [...] in an abandoned building, in an overnight snf, or couch-surfing.) Yes 05/29/2024 Are you worried [...] Telephone Encounter - Allan Baker MD - 06/05/2024 11:15 AM CDT Prescription for hydroxyzine sent ZG documented in this encounter Plan of Treatment Not on file documented as of this encounter Visit Diagnoses Diagnosis Anxiety- Primary Anxiety state, unspecified documented in this encounter Additional Health Concerns Assessment Noted Time PHQ-9 Depression Total Score: 11 024 12:50 PM CDT documented as of this encounter Care Teams Technical Advisor Relationship Specialty [place] [address] [place] [address] PCP - General Family Medicine 06/23/22 [place] [address] [place] [address] Assigned PCP 06/03/22 documented as of this encounter
--- OUTSIDE RECORDS SUMMARY | 2024-06-25 11:32 | XMS_ITS | Encounter Summary ---
Author Organization [facility] Address [address] [place] [address]. [place] [address] Care Team Providers Care Pulmonologist Intensivist Name Role Phone Allan Baker MD Primary Care Provider [phone] Allan Baker MD Unavailable Kasandra Resendez PA-C Unavailable [phone] Encounter Details Date Type Department Care Team (Late st Contact Info) Description 08/09/2022 MyC Medical Advice [facility] [id number] [place] [phone] Allan Baker [place] [id number] [place] [address] Social History Tobacco Use Types Packs/Day [...] often do you attend chur ch or christianity services? Never 06/23/2022 Do you belong to any clubs o r organizations such as nondenominational groups, unions, fraternal or athletic groups, or [...] Answer Date Recorded PHQ-2 Score 2 06/23/2022 [facility] of Occupat ional Health - Occupational Stress [...] place to sleep or slept in a correction (including now)? No 06/23/2022 Sex and Gender [...] documented as of this encounter Care Teams Pulmonologist Intensivist Relationship Specialty [place] [address] [place] [address] PCP - General Family Medicine 06/23/22 [place] [address] [place] [address] Assigned PCP 06/03/22 Kasandra Resendez PA-C [address] [address] Assigned Neuroscience Provider 03/06/23 12/15/23 documented as of this encounter
--- OUTSIDE RECORDS SUMMARY | 2024-06-25 11:32 | XMS_ITS | Clinical Summary ---
Author Organization [facility] Address [address] [place] [address] Care Team Providers Care Manager Linux Name Role Phone Allan Baker MD Primary Care Provider [phone] Source Comments You are receiving this document as you are listed as the primary care provider,follow-up provider, or the patient has been referred to you for consultation.This is in compliance with the Medicare andMedicaid EHR Incentive Program,which states Providers who transition their patient to another setting of careor provider of care or refers their patient to another provider of care shouldprovide summary care record for each transition of care or referral. [facility] Allergies No known active allergies Medications Medication Sig Dispensed Refills Start Date End Date Status CONCERTA OR None Entered Active RITALIN OR None Entered Active Active Problems Problem Noted Date Diagnosed Date Moderate episode of recurrent major depressive d isorder 12/21/2023 Sprain of medial collateral ligament of knee Social History Tobacco Use Types Packs/Day Years Used Date Smoking Tobacco: Never Alcohol Use Standard Drinks/Week Comments Not Asked 0 (1 standard drink = 0.6 oz pur e alcohol) Humiliation, Afraid, Rape, and Kick questionnair e Answer Date Recorded Fear of Current or Ex-Partner Not on file Emotionally Abused Not on file 12/20/2023 Within the last year, have y ou been kicked, hit, slapped, or otherwise physically hurt by your partner or ex-partner? No 12/20/2023 Within the last year, have y ou been raped or forced to have any kind of sexual activity by your partner or ex-partner? No 12/20/2023 Sex and Gender Information Value Date Recorded Sex Assigned at Not on file Gender Identity Not on file Sexual Orientation Not on file Last Filed Vital Signs Vital Sign Reading Time Taken Comments Blood Pressure 110/68 12/21/2023 6:45 AM DIRECTOR OF LITIGATION Pulse 84 12/21/2023 6:45 AM DIRECTOR OF LITIGATION Temperature 36.8 ??C (98.3 ??F) 12/21/2023 6:45 AM CS T Respiratory Rate 17 12/21/2023 6:45 AM DIRECTOR OF LITIGATION Oxygen Saturation 98% 12/21/2023 6:45 AM DIRECTOR OF LITIGATION Inhaled Oxygen Concentration - - Weight 81.6 kg (180 lb) 09/04/2008 7:49 AM CDT Height 180.3 cm (5' 11) 09/04/2008 7:49 AM CDT Body Mass Index 25.1 09/04/2008 7:49 AM CDT Plan of Treatment Health Maintenance Due Date Last Done Comments Hep C Screening (Preventive Services) 1990 HIV Screening (Preventive Services) 2006 Adult Preventive Visit 2008 HepB (1) 2009 COVID-19 Vaccine ( season) 2023 08/19/2021, 07/04/2021 Influenza (#1) 2024 11/06/2022, 09/24, 10/11/2016, Additional history exists DTaP/Tdap/Td (7 - Tdap) 01/03/2031 01/03/20, 11/25/2013, 07/27/2013, Additional history exists Zoster/Shingles (1 of 2) 2040 HepA Aged Out 11/30/2013 No longer eligi ble based on patient's age to complete this topic IPV (Polio) Aged Out 11/30/2013 No longer eligi ble based on patient's age to complete this topic MCV4 Aged Out 11/30/2013, 05/23, 06/16/2006 No longer eligible based on patient's age to complete this topic HPV Vaccine Aged Out No longer eligi ble based on patient's age to complete this topic Hib Aged Out No longer eligi ble based on patient's age to complete this topic Pneumococcal Aged Out No longer eligi ble based on patient's age to complete this topic Care Teams Manager Linux Relationship Specialty [place] [address] [place] [address] PCP - General Family Practice 12/20/23
--- OUTSIDE RECORDS SUMMARY | 2024-06-25 11:32 | XMS_ITS | Encounter Summary ---
Author Organization [facility] Address [address] [place] [address]. [place] [address] Care Team Providers Care Superintendent Recreation Name Role Phone Allan Baker MD Primary Care Provider [phone] Allan Baker MD Unavailable Kasandra Resendez PA-C Unavailable [phone] Encounter Details Date Type Department Care Team (Late st Contact Info) Description 08/11/2023 MyC Medical Advice [facility] [id number] [place] [phone] Allan [place] [id number] [place] [address] Social History Tobacco Use Types Packs/Day [...] often do you attend chur ch or temple services? Never 06/23/2022 Do you belong to any clubs o r organizations such as worship groups, unions, fraternal or athletic groups, or [...] 06/23/2022 PHQ-2 Answer Date Recorded PHQ-2 Score 3 08/11/2023 [facility] of Occupat ional Health - [...] place to sleep or slept in a longterm (including now)? No 06/23/2022 Adolescent Education Answer [...] suspected to have Coronavirus/COVID-19? No / Unsure 08/11/2023 8:41 AM CDT documented as of this encounter Plan of Treatment Not on file documented as of this encounter Visit Diagnoses Not on filedocumented in this encounter Additional Health Concerns Assessment Noted Time PHQ-9 Depression Total Score: 17 023 8:07 AM CDT documented as of this encounter Care Teams Superintendent Recreation Relationship Specialty [place] [address] [place] [address] PCP - General Family Medicine 06/23/22 [place] [address] [place] [address] Assigned PCP 06/03/22 Kasandra Resendez PA-C [address] [place] [address] Assigned Neuroscience Provider 03/06/23 12/15/23 documented as of this encounter
--- OUTSIDE RECORDS SUMMARY | 2024-06-25 11:32 | XMS_ITS | Encounter Summary ---
Author Organization [facility] Address [address] [place] [address] Care Team Providers Care Open Hearth Furnace Operator Name Role Phone Amaury Aguillon MD Primary Care Provider Unavailmiladys e Allan Baker MD Primary Care Provider [phone] Allan Baker MD Unavailable Kasandra Resendez PA-C Unavailable [phone] Encounter Details Date Type Department Care Team (Late st Contact Info) Description 06/27/2021 [facility] [place] [address] [phone] Yvonne Rivas Social History Tobacco Use Types Packs/Day Years Used Date Smoking Tobacco: Every Day Smokeless Tobacco: Never Alcohol Use Standard Drinks/Week Comments Yes 0 (1 standard drink = 0.6 oz pur e alcohol) Sex and Gender Information Value Date Recorded [...] COVID-19 02/27/2023 02/27/2023 03/02/2023 11:21 AM CDT documented as of this encounter Care Teams Open Hearth Furnace Operator Relationship Specialty Start Date End Date Amaury Aguillon MD PCP - General Internal Medicine 07/27/13 06/22/22 [place] [address] [place] [address] PCP - General Family Medicine 06/23/22 [place] [address] [place] [address] Assigned PCP 06/03/22 Kasandra Resendez PA-C [address] [place] [address] Assigned Neuroscience Provider 03/06/23 12/15/23 documented as of this encounter
--- OUTSIDE RECORDS SUMMARY | 2024-06-25 11:33 | XMS_ITS | Clinical Summary ---
Author Organization [employer] Address [address] [place] [address] Phone Care Team Providers Care Market Research Assistant Name Role Phone Adebayo Haynes PhD, LP Unavailable [phone] Dread Rod [facility] Unavailable [phone] Yash Hernandez OTR/L Unavailable [phone] Allan Baker MD Primary Care Provider [phone] Latoya Gray PsyD, Unavailable [phone] Source Comments [employer] is fully rolled out on AMT. Last update 04/26/09.[employer] Allergies No known active allergies Medications * Be aware that medications may not be up to date as of this document. Always verify current medications with patient. Medication Sig Dispensed Refills Start Date End Date Status escitalopram (LEXAPRO) 10 mg oral TABS Take 1 tablet (10 mg) by mouth daily. Active hydrOXYzine (ATARAX;VISTARIL) 25 mg oral tablet Take 1 tablet (25 mg) by mouth 3 times daily as needed for Anxiety. Active acetaminophen (TYLENOL) 325 mg oral tablet Take 2 tablets (650 mg) by mouth every 4 hours. 60 tablet 06/23/2024 Active cyclobenzaprine (FLEXERIL) 10 mg oral Take 1 tablet (10 mg) by mouth 3 times daily as needed for Muscle Spasm(s). 30 tablet 06/23/2024 Active divalproex (DEPAKOTE DR) 500 mg oral 12 HR tabletIndications:Mi graine Take 1 tablet (500 mg) by mouth twice daily. 60 tablet 06/23/2024 Active GABApentin (NEURONTIN) 300 mg oral capsule Take 1 capsule (300 mg) by mouth 3 times daily. 60 capsule 06/23/2024 Active nicotine polacrilex (NICORELIEF) 2 mg mouth/throat gum Chew and park 1 piece (2 mg) by Gum route every 1 hour as needed for Nicotine Craving. 110 each 06/23/2024 Active OLANZapine (ZYPREXA) 10 mg oral Take 1 tablet (10 mg) by mouth daily as needed for Other (specify) (Headache (use second)). 15 tablet 06/23/2024 Active oxyCODONE (ROXICODONE) 5 mg oral tablet Take 1-2 tablets (5-10 mg) by mouth every 8 hours as needed for Pain. 15 tablet 06/23/2024 4 Active QUEtiapine (SEROQUEL) 50 MG oral TABS Take 2 tablets (100 mg) by mouth at bedtime AND 1 tablet (50 mg) twice daily. 60 tablet 06/23/2024 Active sodium chloride 1 gm oral TABS Take 1 tablet (1 g) by mouth 3 times daily for 25 days. 75 tablet 06/23/2024 4 Active sennosides-docusate sodium (STOOL SOFTENER/LAXATIVE) 8.6-50 mg oral tablet Take 1 tablet by mouth twice daily for 7 days. 14 tablet 06/23/2024 4 Active methocarbamol (ROBAXIN-500) 500 mg oral TABS Take 1 tablet (500 mg) by mouth every 6 hours as needed (as needed for muscle pain in the neck). 30 tablet 03/03/2023 4 Discontinue d(Error) buPROPion (WELLBUTRIN XL) 150 mg oral tablet 24 HR Take 1 tablet (150 mg) by mouth daily. 02/24/2023 4 Discontinue d(Error) BANOPHEN 25 MG oral capsule Take 1 capsule (25 mg) by mouth at bedtime as needed. 02/24/2023 4 Discontinue d(Error) ondansetron (ZOFRAN ODT) 8 mg oral disintegrating tablet Take 1 tablet (8 mg) by mouth 3 times daily. 02/27/2023 4 Discontinue d(Error) propranolol (INDERAL) 10 mg oral TABS Take 1 tablet (10 mg) by mouth 3 times daily. 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 Irritability continues to be primary concern with associated anger. Adherent to Wellbutrin although taking a few evening doses due to forgetting prior to work. Denies associated insomnia Wellbutrin XL 150 mg qAM Encouraged continued engagement with psychotherapy FELICIA (generalized anxiety disorder) 09/10/2020 08/26/2023 Last Assessment & Plan: Wellbutrin XL 150 mg daily was started by PCP, quite successful. Will increase next appointment after work schedule normalizes Hydroxyzine PRN for acute anxiety and agitation Continue S1 therapy Encounters Date Type Department Care Team Description 06/19/2024 Orders Only Unspecified Department [place] Unknown, Provider 06/18/2024 Orders Only Unspecified Department [place] Unknown, Provider 06/18/2024 Orders Only Unspecified Department [place] Unknown, Provider 06/18/2024 Orders Only Unspecified Department [place] Unknown, Provider 06/17/2024 Orders Only Unspecified Department [place] Unknown, Provider 06/17/2024 Orders Only Unspecified Department [place] Unknown, Provider 06/17/2024 Orders Only Unspecified Department [place] Unknown, Provider 06/17/2024 Orders Only Unspecified Department [place] Unknown, Provider 06/17/2024 Orders Only Unspecified Department [place] Unknown, Provider 06/17/2024 Orders Only Unspecified Department [place] Unknown, Provider 06/16/2024 Orders Only Unspecified Department [place] Unknown, Provider 06/16/2024 Orders Only Unspecified Department [place] Unknown, Provider 06/14/2024 6:06 PM CDT - 06/23/2024 11:47 AM CDT Hospital Encounter [facility] Surgery/Trauma/Hector ro [address] [place] [address] Dona Johns MD Bunting, DO Michel Turner Chad J, MD Stahler, Paul A, MD Subarachnoid hemorrhage ([facility]) Discharge Disposition: Discharged to home or self care (routine discharge) 06/14/2024 Travel 2024 Travel from Last 3 Months Immunizations Name Administration Dates Next Due Tetanus Toxoid, Reduced Diph theroid Toxoid Acellular Pertussis 01/03/2021 Social History Tobacco Use Types Packs/Day Years Used Date Smoking Tobacco: Every Day Smokeless Tobacco: Former Chew Tobacco Cessation:Ready to Q uit: Not Asked; Counseling Given: Not Answered Alcohol Use Standard Drinks/Week Comments Not Currently 0 (1 standard drink = 0.6 oz pur e alcohol) Humiliation, Afraid, Rape, a nd Kick questionnaire Answer Date Recorded Within the last year, have y ou been afraid of your partner or ex-partner? Patient unable to answer 06/16/2024 Within the last year, have y ou been humiliated or emotionally abused in other ways by your partner or ex-partner? Patient unable to answer 06/16/2024 Within the last year, have y ou been kicked, hit, slapped, or otherwise physically hurt by your partner or ex-partner? Patient unable to answer 06/16/2024 Within the last year, have y ou been raped or forced to have any kind of sexual activity by your partner or ex-partner? Patient unable to answer 06/16/2024 Overall Financial Resource Strain (CARDIA) Answe r Date Recorded How hard is it for you to pa y for the very basics like food, housing, medical care, and heating? Patient declined 06/16/2024 PHQ-2 Answer Date Recorded PHQ-2 Subtotal 1 08/26/2023 Hunger Vital Sign Answer Date Recorded Within the past 12 months, y ou worried that your food would run out before you got the money to buy more. Patient declined Within the past 12 months, t he food you bought just didn't last and you didn't have money to get more. Patient declined PRAPARE - Transportation Answer Date Re corded In the past 12 months, has l ack of transportation kept you from medical appointments or from getting medications? Patient declined 06/16/2024 In the past 12 months, has l ack of transportation kept you from meetings, work, or from getting things needed for daily living? Patient declined 06/16/2024 Housing Stability Answer Date Recorded What is your housing situation today? 5 - Patien t unable to answer 06/16/2024 Sex and Gender Information Value Date Recorded Sex Assigned at Male 03/28/2020 8:08 AM CDT Gender Identity Male 03/28/2020 8:08 AM CDT Sexual Orientation Straight 03/28/2020 8: 08 AM CDT Last Filed Vital Signs Vital Sign Reading Time Taken Comments Blood Pressure 120/74 06/23/2024 7:43 AM CDT Pulse 75 06/23/2024 7:43 AM CDT Temperature 36.4 ??C (97.6 ??F) 06/23/2024 7:43 AM CD T Respiratory Rate 18 06/23/2024 7:43 AM CDT Oxygen Saturation 96% 06/23/2024 7:43 AM CDT Inhaled Oxygen Concentration - - Weight 93.2 kg (205 lb 7.5 oz) 06/18/2024 2:37 P M CDT Height 180 cm (5' 10.87) 06/16/2024 12:05 AM CD T Body Mass Index 28.77 06/16/2024 12:05 AM CDT Plan of Treatment Upcoming Encounters Date Type Department Care Team (Late st Contact Info) Description 07/03/2024 9:30 AM CDT [facility] [address] [place] [id number] Scheduled Discharge Disposition: Discharged to home or self care (routine discharge) 07/04/2024 11:00 AM CDT [facility]ment [facility] [place] [address] [address] Scheduled Discharge Disposition: Discharged to home or self care (routine discharge) 07/04/2024 11:30 AM CDT [facility] [address] [address] Agus Arechiga PA-C [address] [place] [id number] Scheduled Discharge Disposition: Discharged to home or self care (routine discharge) Health Maintenance Due Date Last Done Comments Dental Oral Exam 1990 Dental Prophylaxis 1990 Dental X-Ray: Bitewings 1990 Imm: Pneumonia Peds or At-Risk less than 65 years (1 of 2 - PCV) 1996 Periodontal Maintenance 2004 PREVENTATIVE VISIT 2008 Imm: COVID-19 ( season) 2023 08/19/2021, 07/04/2021 HEALTH MAINTENANCE PROTOCOL 10/02/2023 10/02/2022 Depression Management 02/25/2024 08/26/2023 Imm: Flu (#1) 07/23/2024 11/06/2022, 09/24, 10/11/2016, Additional history exists Imm: DTaP/Tdap (7 - Td or Tdap) 01/03/2031 01/03/2021, 11/25/2013, 07/27/2013, Additional history exists Imm: Zoster (1 of 2) 2040 Imm: HepB Completed 12/11/2002, 05/22, 03/03/2002 Imm: HepA Aged Out 11/30/2013 No longer eligi ble based on patient's age to complete this topic Imm: Meningitis Aged Out 11/30/2013, 05/23, 06/16/2006 No longer eligible based on patient's age to complete this topic HIV Screening Completed 08/11/2023, 11/2019, 06/14/2018 Imm: HPV Aged Out No longer eligi ble based on patient's age to complete this topic Imm: Hib Aged Out No longer eligi ble based on patient's age to complete this topic Goals Goal Patient Goal Type Associated Problems Recent Progress Patient-Stated? Author HEALTH: Make choices that support mental and physical health Care Plan OP Psych - Trauma and Stressor-relate d Symptoms No Latoya Gray PsyD, LP HOME: Create safe, supportive, healthy environment Care Plan OP Psych - Trauma and Stressor-relate d Symptoms No Latoya Gray PsyD, LP PURPOSE: Establish meaningful routines Care Plan OP Psych - Trauma and Stressor-relate d Symptoms No Latoya Gray PsyD, LP COMMUNITY: Develop/maintain supportive social relationships. Make use of community resources Care Plan OP Psych - Trauma and Stressor-relate d Symptoms No Latyoa Gray PsyD, LP Procedures Procedure Name Priority Date/Time Associated Diagnosis Comments PC LACTATE (LACTIC ACID) Routine 06/23/2024 7:58 AM CDT PC GASES,BLOOD,ANY COMB OF PH,PCD2,PO2,CO2,HCO2 Routine 06/23/2024 7:58 AM CDT PC PHOSPHORUS INORGANIC(PHOSPHATE) STAT 06/23/2024 7:58 AM CDT PC MAGNESIUM, SERUM STAT 06/23/2024 7 :58 AM CDT PC LAB CBC W/DIFF & PLT STAT 06/23/2024 7:58 AM CDT TC LAB BLOOD DRAW BY VENIPUNCTURE STAT 06/23/2024 7:58 AM CDT POC GLUCOSE Routine 06/22/2024 12:12 PM CDT POC GLUCOSE Routine 06/22/2024 6:51 AM CDT PC LACTATE (LACTIC ACID) Routine 06/22/2024 6:36 AM CDT PC GASES,BLOOD,ANY COMB OF PH,PCD2,PO2,CO2,HCO2 Routine 06/22/2024 6:36 AM CDT PC LACTATE (LACTIC ACID) Routine 06/21/2024 5:01 AM CDT PC GASES,BLOOD,ANY COMB OF PH,PCD2,PO2,CO2,HCO2 Routine 06/21/2024 5:01 AM CDT PC PHOSPHORUS INORGANIC(PHOSPHATE) STAT 06/21/2024 5:01 AM CDT PC MAGNESIUM, SERUM STAT 06/21/2024 5 :01 AM CDT PC LAB CBC W/DIFF & PLT STAT 06/21/2024 5:01 AM CDT TC LAB BLOOD DRAW BY VENIPUNCTURE STAT 06/21/2024 5:01 AM CDT ANTI XA ASSAY LMW HEPARIN Timed 06/20/2024 1:07 PM CDT PC LACTATE (LACTIC ACID) Routine 06/20/2024 5:07 AM CDT PC GASES,BLOOD,ANY COMB OF PH,PCD2,PO2,CO2,HCO2 Routine 06/20/2024 5:07 AM CDT PC PHOSPHORUS INORGANIC(PHOSPHATE) STAT 06/20/2024 5:07 AM CDT PC MAGNESIUM, SERUM STAT 06/20/2024 5 :07 AM CDT PC LAB CBC W/DIFF & PLT STAT 06/20/2024 5:07 AM CDT TC LAB BLOOD DRAW BY VENIPUNCTURE STAT 06/20/2024 5:07 AM CDT TELEMETRY STRIPS 06/19/2024 2:47 PM CDT POC GLUCOSE Routine 06/19/2024 7:22 AM CDT PC LACTATE (LACTIC ACID) Routine 06/19/2024 5:21 AM CDT PC GASES,BLOOD,ANY COMB OF PH,PCD2,PO2,CO2,HCO2 Routine 06/19/2024 5:21 AM CDT PC PHOSPHORUS INORGANIC(PHOSPHATE) STAT 06/19/2024 5:21 AM CDT PC MAGNESIUM, SERUM STAT 06/19/2024 5 :21 AM CDT PC LAB CBC W/DIFF & PLT STAT 06/19/2024 5:21 AM CDT TC LAB BLOOD DRAW BY VENIPUNCTURE STAT 06/19/2024 5:[address] HEAD NO IV CONTRAST Timed 4:22 AM CDT POC GLUCOSE Routine 06/19/2024 12:35 AM CDT TELEMETRY STRIPS 06/18/2024 7:44 PM CDT POC GLUCOSE Routine 06/18/2024 6:00 PM CDT TELEMETRY STRIPS 06/18/2024 8:10 AM CDT POC GLUCOSE Routine 06/18/2024 6:47 AM CDT PC LACTATE (LACTIC ACID) Routine 06/18/2024 4:41 AM CDT PC GASES,BLOOD,ANY COMB OF PH,PCD2,PO2,CO2,HCO2 Routine 06/18/2024 4:41 AM CDT PC PHOSPHORUS INORGANIC(PHOSPHATE) STAT 06/18/2024 4:41 AM CDT PC MAGNESIUM, SERUM STAT 06/18/2024 4 :41 AM CDT PC LAB CBC W/DIFF & PLT STAT 06/18/2024 4:41 AM CDT PC BASIC MET PANEL STAT 06/18/2024 4: 41 AM CDT TELEMETRY STRIPS 06/18/2024 1:41 AM CDT SODIUM Timed 06/18/2024 12:05 AM CDT POC GLUCOSE Routine 06/17/2024 11:45 PM CDT POC GLUCOSE Routine 06/17/2024 6:17 PM CDT TELEMETRY STRIPS 06/17/2024 6:10 PM CDT SODIUM Timed 06/17/2024 5:49 PM CDT SODIUM Timed 06/17/2024 1:45 PM CDT POC GLUCOSE Routine 06/17/2024 11:38 AM CDT TELEMETRY STRIPS 06/17/2024 10:5 1 AM CDT TELEMETRY STRIPS 06/17/2024 10:3 2 AM CDT TELEMETRY STRIPS 06/17/2024 7:26 AM CDT EKG ADULT (12-LEAD) Routine 06/17/2024 7 :20 AM CDT TELEMETRY STRIPS 06/17/2024 7:12 AM CDT PC LACTATE (LACTIC ACID) Routine 06/17/2024 5:46 AM CDT PC GASES,BLOOD,ANY COMB OF PH,PCD2,PO2,CO2,HCO2 Routine 06/17/2024 5:46 AM CDT PC PHOSPHORUS INORGANIC(PHOSPHATE) STAT 06/17/2024 5:46 AM CDT PC MAGNESIUM, SERUM STAT 06/17/2024 5 :46 AM CDT PC LAB CBC W/DIFF & PLT STAT 06/17/2024 5:46 AM CDT PC BASIC MET PANEL STAT 06/17/2024 5: 46 AM CDT POC GLUCOSE Routine 06/17/2024 5:[address] HEAD NO IV CONTRAST Today 5:26 AM CDT TELEMETRY STRIPS 06/17/2024 2:51 AM CDT SODIUM Timed 06/17/2024 12:15 AM CDT POC GLUCOSE Routine 06/17/2024 12:05 AM CDT TELEMETRY STRIPS 06/16/2024 8:19 PM CDT TELEMETRY STRIPS 06/16/2024 8:17 PM CDT SODIUM Timed 06/16/2024 5:23 PM CDT POC GLUCOSE Routine 06/16/2024 5:11 PM CDT SODIUM Timed 06/16/2024 11:25 AM CDT POC GLUCOSE Routine 06/16/2024 11:06 AM CDT POC GLUCOSE Routine 06/16/2024 6:54 AM CDT PC LACTATE (LACTIC ACID) Routine 06/16/2024 6:32 AM CDT PC GASES,BLOOD,ANY COMB OF PH,PCD2,PO2,CO2,HCO2 Routine 06/16/2024 6:32 AM CDT PC PHOSPHORUS INORGANIC(PHOSPHATE) STAT 06/16/2024 6:32 AM CDT PC MAGNESIUM, SERUM STAT 06/16/2024 6 :32 AM CDT PC LAB CBC W/DIFF & PLT STAT 06/16/2024 6:32 AM CDT PC BASIC MET PANEL STAT 06/16/2024 6: 32 AM CDT SODIUM Timed 06/16/2024 12:39 AM CDT POC GLUCOSE Routine 06/15/2024 11:50 PM CDT EKG ADULT (12-LEAD) Routine 06/15/2024 9 :27 PM CDT POC GLUCOSE Routine 06/15/2024 6:19 PM CDT TC LAB BLOOD DRAW BY VENIPUNCTURE STAT 06/15/2024 6:13 PM CDT PC PHOSPHORUS INORGANIC(PHOSPHATE) STAT 06/15/2024 5:14 PM CDT PC MAGNESIUM, SERUM STAT 06/15/2024 5 :14 PM CDT PC BASIC MET PANEL STAT 06/15/2024 5: 14 PM CDT POC GLUCOSE Routine 06/15/2024 12:36 PM CDT XR HAND RIGHT 3 V PA/OBL/LAT* Routine 06/15/2024 12:19 PM CDT SODIUM Timed 06/15/2024 11:27 AM CDT LUNG AIRWAY CLEARANCE EXPANSION PROTOCOL Routine 06/15/2024 11:10 AM CDT EXTUBATE PATIENT Routine 06/15/2024 11:1 0 AM CDT PC LACTATE (LACTIC ACID) Routine 06/15/2024 6:39 AM CDT PC GASES,BLOOD,ANY COMB OF PH,PCD2,PO2,CO2,HCO2 Routine 06/15/2024 6:[address] HEAD NO IV CONTRAST Timed 6:26 AM CDT POC GLUCOSE Routine 06/15/2024 5:36 AM CDT URINE DRUG SCREEN Routine 06/15/2024 5:2 4 AM CDT PC GASES,BLOOD,ANY COMB OF PH,PCD2,PO2,CO2,HCO2 STAT 06/15/2024 1:27 AM CDT POC GLUCOSE Routine 06/15/2024 1:25 AM CDT PROTHROMBIN (PT) & INR STAT 1:15 AM CDT PANEL BASIC METABOLIC (BMP) STAT 06/15/2024 1:15 AM CDT PC LAB CBC/PLT STAT 06/15/2024 1:15 AM CDT MAGNESIUM STAT 06/15/2024 1:15 AM CDT PHOSPHORUS STAT 06/15/2024 1:15 AM CDT PC LACTATE (LACTIC ACID) STAT 06/15/2024 1:11 AM CDT PC GASES,BLOOD,ANY COMB OF PH,PCD2,PO2,CO2,HCO2 STAT 06/15/2024 1:[address] HEAD NO IV CONTRAST STAT 12:43 AM CDT XR CHEST 1 VIEW AP OR PA* STAT 06/15/2024 12:15 AM CDT PF INSERT EMERGENCY ENDOTRACH AIRWAY Routine 06/15/2024 12:03 AM CDT PF REPR SUPERF WND BODY 2.5CM OR LESS Routine 06/14/2024 9:35 PM CDT ED EKG (12-LEAD) Routine 06/14/2024 7:[address] CHEST/ABD/PELVIS W/IV CONT STAT 06/14/2024 7:[address] SPINE LUMBAR NO IV CON STAT 06/14/2024 7:[address] SPINE THORACIC NO IV CON STAT 06/14/2024 7:[address] SPINE CERVICAL NO IV CON STAT 06/14/2024 7:[address] HEAD NO IV CONTRAST STAT 7:05 PM CDT DRUGS OF ABUSE BLOOD Routine 06/14/2024 6:11 PM CDT EXTRA TUBE - SST Routine 06/14/2024 6:11 PM CDT PC TROPONIN QUANTITATIVE STAT 06/14/2024 6:11 PM CDT ETHANOL (ETOH) LEVEL, BLOOD STAT 06/14/2024 6:11 PM CDT PC LAB PTT STAT 06/14/2024 6:11 PM CDT PC LAB ED INR STAT 06/14/2024 6:11 PM CDT PRECAUTIONARY TUBE STAT 06/14/2024 6: 11 PM CDT PC LACTATE (LACTIC ACID) STAT 06/14/2024 6:11 PM CDT FIBRINOGEN STAT 06/14/2024 6:11 PM CDT PANEL HEPATIC FUNCTION STAT 6:11 PM CDT TC LAB ER STAT TOTAL HGB STAT 06/14/2024 6:11 PM CDT PC LAB GLUCOSE SERUM STAT 06/14/2024 6:11 PM CDT TC LAB BLOOD DRAW BY VENIPUNCTURE STAT 06/14/2024 6:11 PM CDT PC GASES,BLOOD,ANY COMB OF PH,PCD2,PO2,CO2,HCO2 STAT 06/14/2024 6:11 PM CDT ED US CRITICAL CARE STAT 06/14/2024 6 :07 PM CDT HIV COMBO Routine 08/11/2023 9:24 AM CDT from Last 3 Months or Most Recently Relevant to Health Maintenance Results * ICU MAGNESIUM (06/23/2024 7:58 AM CDT) Only the most recent of8 resultswithin the time period is included. Magnesium 2.2 1.6 - 2.6 mg/dL [facility] Blood 06/23/2024 7:58 AM CDT 06/23/2024 8:10 AM CDT Dona Johns MD LABORATORY [facility] [address] [address] * ICU LACTATE (LACTIC ACID) (06/23/2024 7:58 AM CDT) Only the most recent of9 resultswithin the time period is included. Lactate 1.3 0.7 - 2.1 mmol/L [facility] Blood 06/23/2024 7:58 AM CDT 06/23/2024 8:09 AM CDT Evgeny Pearson MD LABORATORY Performing Organization Address [facility] [address]/[facility] Co de Phone Number [facility] [address] [address] * ICU PHOSPHORUS (06/23/2024 7:58 AM CDT) Only the most recent of8 resultswithin the time period is included. Phosphorus 4.3 2.5 - 4.5 mg/dL [facility] Blood 06/23/2024 7:58 AM CDT 06/23/2024 8:10 AM CDT Dona Johns MD LABORATORY Performing Organization Address [facility] [address]/[facility] Co de Phone Number [facility] [address] [address] * (ABNORMAL) ICU BLOOD GAS (06/23/2024 7:58 AM CDT) Only the most recent of9 resultswithin the time period is included. PH Cristobal 7.36 7.32 - 7.42 [facility] PCO2 Cristobal 57(H) 41 - 51 mmHG [facility] PO2 Cristobal 46(H) 25 - 40 mmHG [facility] Bicarb Cristobal 32(H) 24 - 28 mEq/L [facility] O2 Sat Cristobal 77 % [facility] Base Exc Cristobal 4.1(H) -10.0 - 2.0 mmol/L [facility] Blood Venous 06/23/2024 7:58 AM CDT 06/23/2024 8:09 AM CDT Evgeny Pearson MD LABORATORY Performing Organization Address [facility] [address]/[facility] Co de Phone Number [facility] [address] [address] * (ABNORMAL) ICU CBC WITH PLTS/AUTO DIFF (06/23/2024 7:58 AM CDT) Only the most recent of8 resultswithin the time period is included. WBC 11.57(H) 4.00 - 10.00 k/cmm [facility] RBC 4.90 4.60 - 6.00 m/cmm [facility] Hgb 15.3 13.1 - 17.5 g/dL [facility] Hematocrit 45.7 40.0 - 51.0 % [facility] MCV 93.3 80.0 - 100.0 fL [facility] MCH 31.2 25.0 - 32.0 pg [facility] MCHC 33.5 31.0 - 36.0 g/dL [facility] RDW 11.8 11.5 - 14.5 % [facility] Plt 267 150 - 400 k/cmm [facility] MPV 9.5 6.5 - 12.5 fL [facility] Automated Abs Neutrophil 7.13(H) 1.70 - 6.50 k/cmm [facility] Comment:Preliminary ANC, Fin al Result to Follow Abs Immature Granulocyte 0.14(H) 0.00 - 0.09 k/cmm [facility] Comment:The Immature Granulo cyte Absolute count contains metamyelocytes and myelocytes. Abs Neutrophil 7.13(H) 1.70 - 6.50 k/cmm [facility] Abs Lymphocyte 2.49 0.80 - 4.00 k/cmm [facility] Abs Monocyte 1.40(H) 0.20 - 1.00 k/cmm [facility] Abs Eosinophil 0.32 0.00 - 0.60 k/cmm [facility] Abs Basophil 0.09 0.00 - 0.20 k/cmm [facility] Blood 06/23/2024 7:58 AM CDT 06/23/2024 8:10 AM CDT Dona Johns MD LABORATORY [facility] [address] [address] * (ABNORMAL) ICU PANEL BASIC METABOLIC (BMP) (06/23/2024 7:58 AM CDT) Only the most recent of8 resultswithin the time period is included. CO2 28 22 - 30 mmol/L [facility] Glucose 110(H) 70 - 100 mg/dL [facility] BUN 14 6 - 20 mg/dL [facility] Creatinine 0.85 0.70 - 1.25 mg/dL [facility] Calcium 9.5 8.6 - 10.0 mg/dL [facility] Sodium 139 135 - 148 mmol/L [facility] Potassium 4.6 3.5 - 5.3 mmol/L [facility] Chloride 102 92 - 108 mmol/L [facility] eGFR (2020 CKD-EPI) 117 >=60 ml/min/1.7 3m2 [facility] Comment: The estimated glomerular filtration rate (eGFR) was calculated using the CKD-EPI 2020 creatinine equation, which does not include race as a factor. This equation is validated in individuals 18 years of age and older, and eGFR is normalized to a body surface area of 1.73m^2. AnGap 9 8 - 16 mmol/L [facility] Blood 06/23/2024 7:58 AM CDT 06/23/2024 8:10 AM CDT Dona Johns MD LABORATORY Performing Organization Address City/[facility] [address]/ZIP Co de Phone Number [facility] [place] [address] * (ABNORMAL) POC GLUCOSE (06/22/2024 12:12 PM CDT) Only the most recent of19 resultswithin the time period is included. POC Glucose 132(H) 70 - 100 mg/dL [facility] Blood 06/22/2024 12:1 2 PM CDT Dona Johns MD LABORATORY Performing Organization Address [facility] [address]/[facility] Co de Phone Number [facility] [address] [place] [address] * ANTI XA ASSAY LMW HEPARIN (06/20/2024 1:07 PM CDT) Anti XA LMW 0.11 IU/mL [facility] Comment: Anti Xa Assay LMW Heparin Therapeutic Ranges: 0.4-1.1 IU/mL for twice daily 1.0-2.0 IU/mL for once daily Blood 06/20/2024 1:07 PM CDT 06/20/2024 1:42 PM CDT Narrative [facility] - 06/20/2024 2:02 PM CDT Please draw Xa 4-6 h after 0800 lovenox dose Leslye Harmon [place] PharmD LABORATORY [facility] [address] [place] [address] * TELEMETRY STRIPS (06/19/2024 2:47 PM CDT) Only the most recent of12 resultswithin the time period is included. Narrative 06/19/2024 2:47 PM CDT Ordered by an unspecified provider. Provider Unknown RAD ECHO * CT HEAD NO IV CONTRAST (06/19/2024 4:22 AM CDT) Only the most recent of5 resultswithin the time period is included. Anatomical Region Laterality Modality Skull Computed Tomogra phy 06/19/2024 4:22 AM CDT Impressions 06/19/2024 9:45 AM CDT Impression: 1. Continued evolution of multifocal hemorrhagic contusions throughout the frontal and temporal lobes with stable surrounding vasogenic edema. Stable frontal and temporal mass effect with partial effacement of the anterior horns of the lateral ventricles. 2. Decreased right frontal lobe right parietal cerebral convexity subdural hematomas. 3. Ongoing scattered subarachnoid hemorrhage. I have personally reviewed the image(s) and initial interpretation, and I agree with the findings as documented by the resident/fellow. Reading Radiologist: Colton Cr Resident: Gilberto Sommer Narrative 06/19/2024 9:45 AM CDT Indication: eval of scattered SAH, SDH b/l frontal ??. Comparison: none Technique: Axial thin section CT images through the brain were obtained from the base of the skull through the vertex without intravenous contrast and reviewed in brain, bone and subdural windows. Dose Total DLP = 1065.4 mGy.cm. ?? Findings: Continued evolution of multifocal hemorrhagic contusions throughout bifrontal and bitemporal lobes with stable surrounding vasogenic edema. Decreased right frontal and parietal cerebral convexity subdural hematomas. Ongoing scattered subarachnoid hemorrhage. Unchanged bifrontal and bitemporal mass effect with partial

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
--- OUTSIDE RECORDS SUMMARY | 2024-06-25 11:33 | XMS_ITS | Referral Summary ---
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 CORPORATE,HC SNF RX AND LAB Corporate Other Attn Beatriz Smalls [place] [address] [place] [address] Advance Directives For more information, please contact: [phone] * Full Code (Latest Code Status on File) Date Activated Date Inactivated Comments 06/15/2024 12:54 AM 06/23/2024 2:52 PM Question Answer Comments Does the Patient have prefer ences regarding life sustaining measures (these options only apply when the patient has a pulse): No Discussed Code Status With Whom? Not discussed Care Teams Metal Tile Lather Relationship Specialty [place] [address] [place] [address] PCP - General Family Medicine 08/03/23 Adebayo Haynes, PhD, LP [address] [place], [place] [phone] Psychologist Psychology 09/10/20 Dread Rod, SECONDARY SET UP MAN [facility] [place], [place] [id number] Speech Pathologist Speech Pathology 02/02/22 Yash Hernandez, ARMINDAR/L [address] [place] [address] Occupational Therapist 04/07/22 Latoya Gray, PsRubi, LP [address] [place] [phone] Psychology 08/26/23
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
--- OUTSIDE RECORDS SUMMARY | 2024-06-25 11:35 | XMS_ITS | Encounter Summary ---
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 count contains metamyelocytes and myelocytes. Abs Neutrophil 7.13(H) 1.70 - 6.50 k/cmm [facility] Abs Lymphocyte 2.49 0.80 - 4.00 k/cmm [facility] Abs Monocyte 1.40(H) 0.20 - 1.00 k/cmm [facility] Abs Eosinophil 0.32 0.00 - 0.60 k/cmm [facility] Abs Basophil 0.09 0.00 - 0.20 k/cmm [facility] Blood 06/23/2024 7:58 AM CDT 06/23/2024 8:10 AM CDT Dona Johns MD LABORATORY [facility] [address] [address] * (ABNORMAL) ICU PANEL BASIC METABOLIC (BMP) (06/23/2024 7:58 AM CDT) CO2 28 22 - 30 mmol/L [facility] Glucose 110(H) 70 - 100 mg/dL [facility] BUN 14 6 - 20 mg/dL [facility] Creatinine 0.85 0.70 - 1.25 mg/dL [facility] Calcium 9.5 8.6 - 10.0 mg/dL [facility] Sodium 139 135 - 148 mmol/L [facility] Potassium 4.6 3.5 - 5.3 mmol/L [facility] Chloride 102 92 - 108 mmol/L [facility] eGFR (2020 CKD-EPI) 117 >=60 ml/min/1.7 3m2 [facility] Comment: The estimated glomerular filtration rate (eGFR) was calculated using the CKD-EPI 2020 creatinine equation, which does not include race as a factor. This equation is validated in individuals 18 years of age and older, and eGFR is normalized to a body surface area of 1.73m^2. AnGap 9 8 - 16 mmol/L [facility] Blood 06/23/2024 7:58 AM CDT 06/23/2024 8:10 AM CDT Dona Johns MD LABORATORY Performing Organization Address City/[facility] Co de Phone Number [facility] [address] [address] * (ABNORMAL) POC GLUCOSE (06/22/2024 12:12 PM CDT) POC Glucose 132(H) 70 - 100 mg/dL [facility] - POINT OF CARE Blood 06/22/2024 12:1 2 PM CDT Dona Johns MD LABORATORY [facility] - POINT OF CARE [address] [place] [phone], * (ABNORMAL) POC GLUCOSE (06/22/2024 6:51 AM CDT) POC Glucose 102(H) 70 - 100 mg/dL [facility] Blood 06/22/2024 6:51 AM CDT Dona Johns MD LABORATORY Performing Organization Address City/[facility]/ZIP Co de Phone Number [facility] [address] [place] [address], * (ABNORMAL) ICU LACTATE (LACTIC ACID) (06/22/2024 6:36 AM CDT) [facility] Lactate 2.6(H) 0.7 - 2.1 mmol/L [facility] Blood 06/22/2024 6:36 AM CDT 06/22/2024 6:53 AM CDT Evgeny Pearson MD LABORATORY Performing Organization Address [facility] Co de Phone Number [facility] [place] [address] * (ABNORMAL) ICU BLOOD GAS (06/22/2024 6:36 AM CDT) [facility] PH Cristobal 7.40 7.32 - 7.42 [facility] PCO2 Cristobal 50 41 - 51 mmHG [facility] PO2 Cristobal 170(H) 25 - 40 mmHG [facility] Bicarb Cristobal 30(H) 24 - 28 mEq/L [facility] O2 Sat Cristobal 99 % [facility] Base Exc Cristobal 4.5(H) -10.0 - 2.0 mmol/L [facility] Blood Venous 06/22/2024 6:36 AM CDT 06/22/2024 6:53 AM CDT Evgeny Pearson MD LABORATORY Performing Organization Address City/[facility]/ZIP Co de Phone Number [facility] [place] [address] * ICU LACTATE (LACTIC ACID) (06/21/2024 5:01 AM CDT) [facility] Lactate 1.4 0.7 - 2.1 mmol/L [facility] Blood 06/21/2024 5:01 AM CDT 06/21/2024 7:08 AM CDT Evgeny Pearson MD LABORATORY [facility] [address] [address] * (ABNORMAL) ICU BLOOD GAS (06/21/2024 5:01 AM CDT) PH Cristobal 7.42 7.32 - 7.42 [facility] PCO2 Cristobal 45 41 - 51 mmHG [facility] PO2 Cristobal 80(H) 25 - 40 mmHG [facility] Bicarb Cristobal 28 24 - 28 mEq/L [facility] O2 Sat Cristobal 96 % [facility] Base Exc Cristobal 3.7(H) -10.0 - 2.0 mmol/L [facility] Blood Venous 06/21/2024 5:01 AM CDT 06/21/2024 5:30 AM CDT Evgeny Pearson MD LABORATORY [facility] [address] [address] * ICU PHOSPHORUS (06/21/2024 5:01 AM CDT) Phosphorus 3.1 2.5 - 4.5 mg/dL [facility] Blood 06/21/2024 5:01 AM CDT 06/21/2024 5:20 AM CDT Dona Johns MD LABORATORY [facility] [address] [address] * ICU MAGNESIUM (06/21/2024 5:01 AM CDT) Magnesium 2.0 1.6 - 2.6 mg/dL [facility] Blood 06/21/2024 5:01 AM CDT 06/21/2024 5:20 AM CDT Dona Johns MD LABORATORY [facility] [address] [address] * (ABNORMAL) ICU CBC WITH PLTS/AUTO DIFF (06/21/2024 5:01 AM CDT) WBC 9.60 4.00 - 10.00 k/cmm [facility] RBC 4.58(L) 4.60 - 6.00 m/cmm [facility] Hgb 14.2 13.1 - 17.5 g/dL [facility] Hematocrit 43.0 40.0 - 51.0 % [facility] MCV 93.9 80.0 - 100.0 fL [facility] MCH 31.0 25.0 - 32.0 pg [facility] MCHC 33.0 31.0 - 36.0 g/dL [facility] RDW 11.7 11.5 - 14.5 % [facility] Plt 230 150 - 400 k/cmm [facility] MPV 9.8 6.5 - 12.5 fL [facility] Automated Abs Neutrophil 5.85 1.70 - 6.50 k/cmm [facility] Comment:Preliminary ANC, Fin al Result to Follow Abs Immature Granulocyte 0.05 0.00 - 0.09 k/cmm [facility] Comment:The Immature Granulo cyte Absolute count contains metamyelocytes and myelocytes. Abs Neutrophil 5.85 1.70 - 6.50 k/cmm [facility] Abs Lymphocyte 2.17 0.80 - 4.00 k/cmm [facility] Abs Monocyte 1.13(H) 0.20 - 1.00 k/cmm [facility] Abs Eosinophil 0.33 0.00 - 0.60 k/cmm [facility] Abs Basophil 0.07 0.00 - 0.20 k/cmm [facility] Blood 06/21/2024 5:01 AM CDT 06/21/2024 5:20 AM CDT Dona Johns MD LABORATORY [facility] [address] [address] * (ABNORMAL) ICU PANEL BASIC METABOLIC (BMP) (06/21/2024 5:01 AM CDT) Pathologist [facility] Sodium 139 135 - 148 mmol/L [facility] Potassium 4.4 3.5 - 5.3 mmol/L [facility] Chloride 102 92 - 108 mmol/L [facility] CO2 27 22 - 30 mmol/L [facility] AnGap 10 8 - 16 mmol/L [facility] Glucose 103(H) 70 - 100 mg/dL [facility] BUN 12 6 - 20 mg/dL [facility] Creatinine 0.84 0.70 - 1.25 mg/dL [facility] Calcium 9.0 8.6 - 10.0 mg/dL [facility] eGFR (2020 CKD-EPI) 117 >=60 ml/min/1.7 3m2 [facility] Comment: The estimated glomerular filtration rate (eGFR) was calculated using the CKD-EPI 2020 creatinine equation, which does not include race as a factor. This equation is validated in individuals 18 years of age and older, and eGFR is normalized to a body surface area of 1.73m^2. Blood 06/21/2024 5:01 AM CDT 06/21/2024 5:20 AM CDT Dona Johns MD LABORATORY [facility] [address] [address] * ANTI XA ASSAY LMW HEPARIN (06/20/2024 1:07 PM CDT) Pathologist [facility] Anti XA LMW 0.11 IU/mL [facility] Comment: Anti Xa Assay LMW Heparin Therapeutic Ranges: 0.4-1.1 IU/mL for twice daily 1.0-2.0 IU/mL for once daily Blood 06/20/2024 1:07 PM CDT 06/20/2024 1:42 PM CDT Narrative [facility] - 06/20/2024 2:02 PM CDT Please draw Xa 4-6 h after 0800 lovenox dose Leslye Ibrahim PharmD LABORATORY [address] [address] * ICU LACTATE (LACTIC ACID) (06/20/2024 5:07 AM CDT) Lactate 1.9 0.7 - 2.1 mmol/L [facility] Blood 06/20/2024 5:07 AM CDT 06/20/2024 5:21 AM CDT Evgeny Pearson MD LABORATORY Performing Organization Address City/[facility] Co de Phone Number [address] [address] * (ABNORMAL) ICU BLOOD GAS (06/20/2024 5:07 AM CDT) PH Cristobal 7.39 7.32 - 7.42 [facility] PCO2 Cristobal 50 41 - 51 mmHG [facility] PO2 Cristobal 86(H) 25 - 40 mmHG [facility] Bicarb Cristobal 30(H) 24 - 28 mEq/L [facility] O2 Sat Cristobal 96 % [facility] Base Exc Cristobal 4.1(H) -10.0 - 2.0 mmol/L [facility] Blood Venous 06/20/2024 5:07 AM CDT 06/20/2024 5:21 AM CDT Evgeny Pearson MD LABORATORY Performing Organization Address City/[facility]/ZIP Co de Phone Number [address] [address] * ICU PHOSPHORUS (06/20/2024 5:07 AM CDT) Phosphorus 4.2 2.5 - 4.5 mg/dL [facility] Blood 06/20/2024 5:07 AM CDT 06/20/2024 5:25 AM CDT Dona Johns MD LABORATORY Performing Organization Address City/[facility]/ZIP Co de Phone Number [address] [address] * ICU MAGNESIUM (06/20/2024 5:07 AM CDT) Magnesium 2.0 1.6 - 2.6 mg/dL [facility] Blood 06/20/2024 5:07 AM CDT 06/20/2024 5:25 AM CDT Dona Johns MD LABORATORY [facility] [address] [address] * (ABNORMAL) ICU CBC WITH PLTS/AUTO DIFF (06/20/2024 5:07 AM CDT) WBC 8.49 4.00 - 10.00 k/cmm [facility] RBC 4.61 4.60 - 6.00 m/cmm [facility] Hgb 14.5 13.1 - 17.5 g/dL [facility] Hematocrit 42.7 40.0 - 51.0 % [facility] MCV 92.6 80.0 - 100.0 fL [facility] MCH 31.5 25.0 - 32.0 pg [facility] MCHC 34.0 31.0 - 36.0 g/dL [facility] RDW 11.9 11.5 - 14.5 % [facility] Plt 239 150 - 400 k/cmm [facility] MPV 9.5 6.5 - 12.5 fL [facility] Automated Abs Neutrophil 5.01 1.70 - 6.50 k/cmm [facility] Comment:Preliminary ANC, Fin al Result to Follow Abs Immature Granulocyte 0.04 0.00 - 0.09 k/cmm [facility] Comment:The Immature Granulo cyte Absolute count contains metamyelocytes and myelocytes. Abs Neutrophil 5.01 1.70 - 6.50 k/cmm [facility] Abs Lymphocyte 2.02 0.80 - 4.00 k/cmm [facility] Abs Monocyte 1.07(H) 0.20 - 1.00 k/cmm [facility] Abs Eosinophil 0.30 0.00 - 0.60 k/cmm [facility] Abs Basophil 0.05 0.00 - 0.20 k/cmm [facility] Blood 06/20/2024 5:07 AM CDT 06/20/2024 5:25 AM CDT Dona Johns MD LABORATORY Performing Organization Address [facility] Co de Phone Number [facility] [address] [address] * (ABNORMAL) ICU PANEL BASIC METABOLIC (BMP) (06/20/2024 5:07 AM CDT) Sodium 141 135 - 148 mmol/L [facility] Potassium 3.7 3.5 - 5.3 mmol/L [facility] Chloride 105 92 - 108 mmol/L [facility] CO2 27 22 - 30 mmol/L [facility] AnGap 9 8 - 16 mmol/L [facility] Glucose 138(H) 70 - 100 mg/dL [facility] BUN 12 6 - 20 mg/dL [facility] Creatinine 0.84 0.70 - 1.25 mg/dL [facility] Calcium 8.8 8.6 - 10.0 mg/dL [facility] eGFR (2020 CKD-EPI) 117 >=60 ml/min/1.7 3m2 [facility] Comment: The estimated glomerular filtration rate (eGFR) was calculated using the CKD-EPI 2020 creatinine equation, which does not include race as a factor. This equation is validated in individuals 18 years of age and older, and eGFR is normalized to a body surface area of 1.73m^2. Blood 06/20/2024 5:07 AM CDT 06/20/2024 5:25 AM CDT Dona Johns MD LABORATORY Performing Organization Address City/[facility]/ZIP Co de Phone Number [facility] [address] [address] * (ABNORMAL) POC GLUCOSE (06/19/2024 7:22 AM CDT) POC Glucose 115(H) 70 - 100 mg/dL [facility] Blood 06/19/2024 7:22 AM CDT Dona Johns MD LABORATORY [facility] [address] [place] [address] * ICU LACTATE (LACTIC ACID) (06/19/2024 5:21 AM CDT) Lactate 1.4 0.7 - 2.1 mmol/L [facility] Blood 06/19/2024 5:21 AM CDT 06/19/2024 5:27 AM CDT Evgeny Pearson MD LABORATORY Performing Organization Address City/[facility]/[place] [address] * (ABNORMAL) ICU BLOOD GAS (06/19/2024 5:21 AM CDT) PH Cristobal 7.44(H) 7.32 - 7.42 [facility] PCO2 Cristobal 43 41 - 51 mmHG [facility] PO2 Cristobal 213(H) 25 - 40 mmHG [facility] Bicarb Cristobal 28 24 - 28 mEq/L [facility] O2 Sat Cristobal 99 % [facility] Base Exc Cristobal 3.9(H) -10.0 - 2.0 mmol/L [facility] Blood Venous 06/19/2024 5:21 AM CDT 06/19/2024 5:27 AM CDT Evgeny Pearson MD LABORATORY Performing Organization Address City/[facility]/ZIP Co de Phone Number [facility] [address] [address] * ICU PHOSPHORUS (06/19/2024 5:21 AM CDT) Phosphorus 3.5 2.5 - 4.5 mg/dL [facility] Blood 06/19/2024 5:21 AM CDT 06/19/2024 5:25 AM CDT Dona Johns MD LABORATORY [facility] [address] [address] * ICU MAGNESIUM (06/19/2024 5:21 AM CDT) Pathologist [facility] Magnesium 1.9 1.6 - 2.6 mg/dL [facility] Blood 06/19/2024 5:21 AM CDT 06/19/2024 5:25 AM CDT Dona Johns MD LABORATORY [facility] [address] [address] * (ABNORMAL) ICU CBC WITH PLTS/AUTO DIFF (06/19/2024 5:21 AM CDT) Pathologist [facility] WBC 9.22 4.00 - 10.00 k/cmm [facility] RBC 4.55(L) 4.60 - 6.00 m/cmm [facility] Hgb 13.9 13.1 - 17.5 g/dL [facility] Hematocrit 42.7 40.0 - 51.0 % [facility] MCV 93.8 80.0 - 100.0 fL [facility] MCH 30.5 25.0 - 32.0 pg [facility] MCHC 32.6 31.0 - 36.0 g/dL [facility] RDW 11.8 11.5 - 14.5 % [facility] Plt 222 150 - 400 k/cmm [facility] MPV 9.8 6.5 - 12.5 fL [facility] Automated Abs Neutrophil 5.54 1.70 - 6.50 k/cmm [facility] Comment:Preliminary ANC, Fin al Result to Follow Abs Immature Granulocyte 0.04 0.00 - 0.09 k/cmm [facility] Comment:The Immature Granulo cyte Absolute count contains metamyelocytes and myelocytes. Abs Neutrophil 5.54 1.70 - 6.50 k/cmm [facility] Abs Lymphocyte 2.20 0.80 - 4.00 k/cmm [facility] Abs Monocyte 1.08(H) 0.20 - 1.00 k/cmm [facility] Abs Eosinophil 0.32 0.00 - 0.60 k/cmm [facility] Abs Basophil 0.04 0.00 - 0.20 k/cmm [facility] Blood 06/19/2024 5:21 AM CDT 06/19/2024 5:25 AM CDT Dona Johns MD LABORATORY Performing Organization Address [facility] Co de Phone Number [facility] [address] [address] * (ABNORMAL) ICU PANEL BASIC METABOLIC (BMP) (06/19/2024 5:21 AM CDT) [facility] Signature CO2 23 22 - 30 mmol/L [facility] Glucose 129(H) 70 - 100 mg/dL [facility] BUN 9 6 - 20 mg/dL [facility] Creatinine 0.80 0.70 - 1.25 mg/dL [facility] Calcium 8.6 8.6 - 10.0 mg/dL [facility] Sodium 139 135 - 148 mmol/L [facility] Potassium 3.5 3.5 - 5.3 mmol/L [facility] Chloride 105 92 - 108 mmol/L [facility] eGFR (2020 CKD-EPI) 119 >=60 ml/min/1.7 3m2 [facility] Comment: The estimated glomerular filtration rate (eGFR) was calculated using the CKD-EPI 2020 creatinine equation, which does not include race as a factor. This equation is validated in individuals 18 years of age and older, and eGFR is normalized to a body surface area of 1.73m^2. AnGap 11 8 - 16 mmol/L [facility] Blood 06/19/2024 5:21 AM CDT 06/19/2024 5:25 AM CDT Dona Johns MD LABORATORY Performing Organization Address [facility] Co de Phone Number [facility] [address] [address] * CT HEAD NO IV CONTRAST (06/19/2024 4:22 AM CDT) Anatomical Region Laterality Modality Skull Computed Tomogra [...] Reading Radiologist: Colton Cr Resident: Gilberto Sommer 06/19/2024 9:45 AM CDT Indication: eval of [...] Evgeny Pearson MD RAD CT NEURO * (ABNORMAL) POC GLUCOSE (06/19/2024 12:35 AM CDT) POC Glucose 136(H) 70 - 100 mg/dL [facility] Blood 06/19/2024 12:3 5 AM CDT Dona Johns MD LABORATORY Performing Organization Address City/[facility]/ZIP Co de Phone Number [facility] [address] [place] [id number], [place] * (ABNORMAL) POC GLUCOSE (06/18/2024 6:00 PM CDT) POC Glucose 109(H) 70 - 100 mg/dL [facility] Blood 06/18/2024 6:00 PM CDT Dona Johns MD LABORATORY [facility] [address] [place] [address], [place] * (ABNORMAL) POC GLUCOSE (06/18/2024 6:47 AM CDT) POC Glucose 111(H) 70 - 100 mg/dL [facility] Blood 06/18/2024 6:47 AM CDT Dona Johns MD LABORATORY Performing Organization Address City/[facility]/ZIP Co de Phone Number [facility] [address] [place] [address], * ICU LACTATE (LACTIC ACID) (06/18/2024 4:41 AM CDT) Lactate 1.3 0.7 - 2.1 mmol/L [facility] Blood 06/18/2024 4:41 AM CDT 06/18/2024 4:54 AM CDT Evgeny Pearson MD LABORATORY Performing Organization Address [facility] [place] [address] * (ABNORMAL) ICU BLOOD GAS (06/18/2024 4:41 AM CDT) PH Cristobal 7.46(H) 7.32 - 7.42 [facility] [facility] PCO2 Cristobal 38(L) 41 - 51 mmHG [facility] PO2 Cristobal 118(H) 25 - 40 mmHG [facility] Bicarb Cristobal 26 24 - 28 mEq/L [facility] O2 Sat Cristobal 99 % [facility] Base Exc Cristobal 2.7(H) -10.0 - 2.0 mmol/L [facility] Blood Venous 06/18/2024 4:41 AM CDT 06/18/2024 4:54 AM CDT Evgeny Pearson MD LABORATORY Performing Organization Address City/[facility]/ZIP Co de Phone Number [facility] [address] [address] * ICU PHOSPHORUS (06/18/2024 4:41 AM CDT) Phosphorus 3.7 2.5 - 4.5 mg/dL [facility] Blood 06/18/2024 4:41 AM CDT 06/18/2024 4:56 AM CDT Dona Johns MD LABORATORY [facility] [address] [place] [address] * ICU MAGNESIUM (06/18/2024 4:41 AM CDT) Pathologist [facility] Magnesium 1.7 1.6 - 2.6 mg/dL [facility] Blood 06/18/2024 4:41 AM CDT 06/18/2024 4:56 AM CDT Dona Johns MD LABORATORY Performing Organization Address City/[facility] Co de Phone Number [facility] [address] [address] * (ABNORMAL) ICU CBC WITH PLTS/AUTO DIFF (06/18/2024 4:41 AM CDT) [facility] WBC 9.50 4.00 - 10.00 k/cmm [facility] RBC 4.25(L) 4.60 - 6.00 m/cmm [facility] Hgb 13.1 13.1 - 17.5 g/dL [facility] Hematocrit 39.9(L) 40.0 - 51.0 % [facility] MCV 93.9 80.0 - 100.0 fL [facility] MCH 30.8 25.0 - 32.0 pg [facility] MCHC 32.8 31.0 - 36.0 g/dL [facility] RDW 11.8 11.5 - 14.5 % [facility] Plt 212 150 - 400 k/cmm [facility] MPV 10.3 6.5 - 12.5 fL [facility] Automated Abs Neutrophil 6.39 1.70 - 6.50 k/cmm [facility] Comment:Preliminary ANC, Fin al Result to Follow Abs Immature Granulocyte 0.05 0.00 - 0.09 k/cmm [facility] Comment:The Immature Granulo cyte Absolute count contains metamyelocytes and myelocytes. Abs Neutrophil 6.39 1.70 - 6.50 k/cmm [facility] Abs Lymphocyte 1.82 0.80 - 4.00 k/cmm [facility] Abs Monocyte 1.02(H) 0.20 - 1.00 k/cmm [facility] Abs Eosinophil 0.16 0.00 - 0.60 k/cmm [facility] Abs Basophil 0.06 0.00 - 0.20 k/cmm [facility] Blood 06/18/2024 4:41 AM CDT 06/18/2024 4:56 AM CDT Dona Johns MD LABORATORY Performing Organization Address [facility] Co de Phone Number [address] [address] * (ABNORMAL) ICU PANEL BASIC METABOLIC (BMP) (06/18/2024 4:41 AM CDT) Sodium 143 135 - 148 mmol/L [facility] Potassium 3.6 3.5 - 5.3 mmol/L [facility] Chloride 107 92 - 108 mmol/L [facility] CO2 25 22 - 30 mmol/L [facility] AnGap 11 8 - 16 mmol/L [facility] Glucose 124(H) 70 - 100 mg/dL [facility] BUN 11 6 - 20 mg/dL [facility] Creatinine 0.82 0.70 - 1.25 mg/dL [facility] Calcium 8.4(L) 8.6 - 10.0 mg/dL [facility] eGFR (2020 CKD-EPI) 118 >=60 ml/min/1.7 3m2 [facility] Comment: The estimated glomerular filtration rate (eGFR) was calculated using the CKD-EPI 2020 creatinine equation, which does not include race as a factor. This equation is validated in individuals 18 years of age and older, and eGFR is normalized to a body surface area of 1.73m^2. Blood 06/18/2024 4:41 AM CDT 06/18/2024 4:56 AM CDT Dona Johns MD LABORATORY Performing Organization Address [facility] Co de Phone Number [address] [address] * SODIUM (06/18/2024 12:05 AM CDT) Sodium 145 135 - 148 mmol/L [facility] Blood 06/18/2024 12:0 5 AM CDT 06/18/2024 12:15 AM CDT Kirstin Campbell APRN, CNP LABORATORY [facility] [address] [address] * (ABNORMAL) POC GLUCOSE (06/17/2024 11:45 PM CDT) POC Glucose 143(H) 70 - 100 mg/dL [facility] Blood 06/17/2024 11:4 5 PM CDT Dona Johns MD LABORATORY Performing Organization Address City/[facility]/ZIP Co de Phone Number [facility] [place] [address], [place] * (ABNORMAL) POC GLUCOSE (06/17/2024 6:17 PM CDT) POC Glucose 141(H) 70 - 100 mg/dL [facility] Blood 06/17/2024 6:17 PM CDT Dona Johns MD LABORATORY Performing Organization Address City/[facility]/ZIP Co de Phone Number [facility] [address] [address], [place] * SODIUM (06/17/2024 5:49 PM CDT) Sodium 144 135 - 148 mmol/L [facility] Blood 06/17/2024 5:49 PM CDT 06/17/2024 6:12 PM CDT Kirstin Campbell APRN, CNP LABORATORY [address] [address] * SODIUM (06/17/2024 1:45 PM CDT) Sodium 144 135 - 148 mmol/L [facility] Blood 06/17/2024 1:45 PM CDT 06/17/2024 2:56 PM CDT Kirstin Campbell APRN, CNP LABORATORY Performing Organization Address [facility] Co de Phone Number [facility] [address] [place] [address] * (ABNORMAL) POC GLUCOSE (06/17/2024 11:38 AM CDT) POC Glucose 162(H) 70 - 100 mg/dL [facility] Blood 06/17/2024 11:3 8 AM CDT Dona Johns MD LABORATORY Performing Organization Address [facility] Co de Phone Number [facility] [address] [place] [address], * EKG ADULT (12-LEAD) (06/17/2024 7:20 AM CDT) 06/17/2024 7:20 AM CDT Impressions [facility] EKG ORDERS - 06/17/2024 7:20 AM CDT SLOW SINUS ARRHYTHMIA WITH INTERMITTENT JUNCTIONAL ESCAPE RHYTHM BORDERLINE ECG Comparison Summary: JUNCTIONAL ESCAPE RHYTHM NOW PRESENT Compared with: 06/15/2024 9:27 PM P-R Interval 92 ms QRS Interval 94 ms QT Interval 473 ms QTC Interval 440 ms P [place] -4 QRS [place] 53 T Wave [place] 16 Narrative Procedure Note Mabel Andrews MD - 06/17/2024 IMPRESSION SLOW SINUS ARRHYTHMIA WITH INTERMITTENT JUNCTIONAL ESCAPE RHYTHM BORDERLINE ECG Comparison Summary: JUNCTIONAL ESCAPE RHYTHM NOW PRESENT Compared with: 06/15/2024 9:27 PM P-R Interval 92 ms QRS Interval 94 ms QT Interval 473 ms QTC Interval 440 ms P [place] -4 QRS [place] 53 T Wave [place] 16 Evgeny Pearson MD EKG Performing Organization Address [facility] Co de Phone Number [facility] EKG ORDERS * ICU LACTATE (LACTIC ACID) (06/17/2024 5:46 AM CDT) Lactate 0.8 0.7 - 2.1 mmol/L [facility] Blood 06/17/2024 5:46 AM CDT 06/17/2024 6:14 AM CDT Evgeny Pearson MD LABORATORY [facility] [address] [address] * (ABNORMAL) ICU BLOOD GAS (06/17/2024 5:46 AM CDT) PH Cristobal 7.45(H) 7.32 - 7.42 [facility] PCO2 Cristobal 39(L) 41 - 51 mmHG [facility] PO2 Cristobal 131(H) 25 - 40 mmHG [facility] Bicarb Cristobal 26 24 - 28 mEq/L [facility] O2 Sat Cristobal 99 % [facility] Base Exc Cristobal 2.5(H) -10.0 - 2.0 mmol/L [facility] Blood Venous 06/17/2024 5:46 AM CDT 06/17/2024 6:14 AM CDT Evgeny Pearson MD LABORATORY [facility] [address] [address] * (ABNORMAL) ICU PHOSPHORUS (06/17/2024 5:46 AM CDT) Phosphorus 2.1(L) 2.5 - 4.5 mg/dL [facility] Blood 06/17/2024 5:46 AM CDT 06/17/2024 6:02 AM CDT Dona Johns MD LABORATORY [facility] [address] [address] * ICU MAGNESIUM (06/17/2024 5:46 AM CDT) Magnesium 2.0 1.6 - 2.6 mg/dL [facility] Blood 06/17/2024 5:46 AM CDT 06/17/2024 6:02 AM CDT Dona Johns MD LABORATORY [facility] [address] [address] * (ABNORMAL) ICU CBC WITH PLTS/AUTO DIFF (06/17/2024 5:46 AM CDT) WBC 11.49(H) 4.00 - 10.00 k/cmm [facility] RBC 4.34(L) 4.60 - 6.00 m/cmm [facility] Hgb 13.5 13.1 - 17.5 g/dL [facility] Hematocrit 41.1 40.0 - 51.0 % [facility] MCV 94.7 80.0 - 100.0 fL [facility] MCH 31.1 25.0 - 32.0 pg [facility] MCHC 32.8 31.0 - 36.0 g/dL [facility] RDW 11.8 11.5 - 14.5 % [facility] Plt 195 150 - 400 k/cmm [facility] MPV 10.4 6.5 - 12.5 fL [facility] Automated Abs Neutrophil 8.41(H) 1.70 - 6.50 k/cmm [facility] Comment:Preliminary ANC, Fin al Result to Follow Abs Immature Granulocyte 0.06 0.00 - 0.09 k/cmm [facility] Comment:The Immature Granulo cyte Absolute count contains metamyelocytes and myelocytes. Abs Neutrophil 8.41(H) 1.70 - 6.50 k/cmm [facility] Abs Lymphocyte 1.67 0.80 - 4.00 k/cmm [facility] Abs Monocyte 1.26(H) 0.20 - 1.00 k/cmm [facility] Abs Eosinophil 0.06 0.00 - 0.60 k/cmm [facility] Abs Basophil 0.03 0.00 - 0.20 k/cmm [facility] Blood 06/17/2024 5:46 AM CDT 06/17/2024 6:02 AM CDT Dona Johns MD LABORATORY Performing Organization Address City/[facility]/ZIP Co de Phone Number [facility] [address] [address] * (ABNORMAL) ICU PANEL BASIC METABOLIC (BMP) (06/17/2024 5:46 AM CDT) CO2 23 22 - 30 mmol/L [facility] Glucose 104(H) 70 - 100 mg/dL [facility] BUN 9 6 - 20 mg/dL [facility] Creatinine 0.82 0.70 - 1.25 mg/dL [facility] Calcium 8.7 8.6 - 10.0 mg/dL [facility] Sodium 141 135 - 148 mmol/L [facility] Potassium 3.7 3.5 - 5.3 mmol/L [facility] Chloride 107 92 - 108 mmol/L [facility] eGFR (2020 CKD-EPI) 118 >=60 ml/min/1.7 3m2 [facility] Comment: The estimated glomerular filtration rate (eGFR) was calculated using the CKD-EPI 2020 creatinine equation, which does not include race as a factor. This equation is validated in individuals 18 years of age and older, and eGFR is normalized to a body surface area of 1.73m^2. AnGap 11 8 - 16 mmol/L [facility] Blood 06/17/2024 5:46 AM CDT 06/17/2024 6:02 AM CDT Dona Johns MD LABORATORY Performing Organization Address [facility]/ZIP Co de Phone Number [facility] [address] [address] * POC GLUCOSE (06/17/2024 5:45 AM CDT) POC Glucose 98 70 - 100 mg/dL [facility] Blood 06/17/2024 5:45 AM CDT Dona Johns MD LABORATORY [facility] [address] [place] [address], [place] * CT HEAD NO IV CONTRAST (06/17/2024 5:26 AM CDT) Anatomical Region Laterality Modality Skull Computed Tomogra phy 06/17/2024 5:58 AM CDT Impressions 06/17/2024 7:09 AM CDT Impression: 1. Continued evolution of bifrontal and bitemporal hemorrhagic contusions, right greater than left, with increased surrounding vasogenic edema/mass effect resulting in partial effacement of the anterior horns of the lateral ventricles. No substantial change in size of the hyperdense hemorrhagic components. 2. Minimally decreased subdural and subarachnoid hemorrhages. I have personally reviewed the image(s) and initial interpretation, and I agree with the findings as documented by the resident/fellow. Reading Radiologist: Luis Price Reading Resident: Paul Cowan 06/17/2024 7:09 AM CDT Indication: New headache; current SAH/SDH ??. Comparison: CT head 06/15/2024 Technique: Axial thin section CT images through the brain were obtained from the base of the skull through the vertex without intravenous contrast and reviewed in brain, bone and subdural windows. Dose Total DLP = 1357.3 mGy.cm. ?? Findings: Redemonstration of multifocal hemorrhagic contusions throughout the bifrontal and bitemporal lobes, right greater than left. There is increased surrounding vasogenic edema compared to CT head 06/15/2024, most pronounced within the anterior right frontal lobe. No substantial change in the size of the hyperdense hemorrhagic components. Minimally decreased size of thin acute subdural hemorrhage overlying the anterior-inferior right

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
[2024-06-25] MEDS: APIXABAN 5 MG TABLET 10 MG PO (14:00)
== END 2024-06-25 14:05 | disposition home or self-care (01) ==
PROVIDERS: Emergency Provider Emergency Medicine Emergency Medical Services; PCP Family Medicine
DX: I82.623 Acute embolism and thrombosis of deep veins of upper extremity, bilateral (principal)
CPT/HCPCS: 93970; 99284; A9270